=== PATIENT | female | born 1935 | race Caucasian/White ===

== ENCOUNTER 2016-11-05 06:47 | Day surgery (SDC) | payer OTHER, BC ==
[2016-11-01 13:11] VITALS: BMI 29.5
--- NOTE | 2016-11-05 06:23 | HP ---
History & Physical Update - History History: No Change - Physical Physical: No Change - Assessment Assessment: No Change - Plan Plan: No Change
[~2016-11-05 06:47] MED LIST: CHONDROITIN SU A/HYALUR SOD 1 KIT IO ONE; TOBRAMYCIN/DEXAMETHASONE OPHTH. OINTMENT 1 TUBE TP ONE
[2016-11-05] MEDS ORDERED: EPINEPHrine/PF 1 MG/1 ML (1:1,000) AMPULE ONE (07:17)
[2016-11-05] MEDS ORDERED: LIDOCAINE HCL/PF 2% SDV 5ML VIAL ONE (07:17)
[2016-11-05] MEDS ORDERED: BUPIVACAINE HCL/PF 0.75% 10 ML VIAL ONE (07:17)
[2016-11-05 07:18] VITALS: TEMP 97.5
[2016-11-05] MEDS ORDERED: ACETYLCHOLINE 1:100 INTRA-OCUL 20 MG/2 ML KIT ONE (07:18)
[2016-11-05] MEDS ORDERED: TETRACAINE 0.5% OPHTH SOLN 2 ML BOTTLE ONE (07:18)
[2016-11-05] MEDS ORDERED: POVIDONE-IODINE 5% OPHTHALMIC PREP 30 ML SOLUTION ONE (07:18)
[2016-11-05] MEDS ORDERED: BSS (NA/CA/MG/K) BALANCED SALT SOLUTION OPHTH SOLN 15 ML BOTTLE ONE (07:18)
[2016-11-05] MEDS ORDERED: TRYPAN BLUE 0.5 ML DISP.SYRIN ONE (07:18)
[2016-11-05] MEDS: PHENYLEPHRINE 2.5% OPHTH SOLN 15 ML BOTTLE OP SCH ×2 (07:20→07:25)
[2016-11-05] MEDS: TROPICAMIDE 1% OPHTH SOLN 15 ML BOTTLE OP SCH ×2 (07:20→07:25)
[2016-11-05] MEDS ORDERED: TOBRAMYCIN/DEXAMETHASONE OPHTH. OINTMENT 1 TUBE ONE (07:20)
[2016-11-05] MEDS: CYCLOPENTOLATE HCL 1% OPHTH SOLN 2 ML BOTTLE OP SCH ×2 (07:20→07:25)
[2016-11-05] MEDS: MOXIFLOXACIN HCL 0.5% OPHTHALMIC 3 ML BOTTLE OP SCH ×2 (07:20→07:25)
[2016-11-05] MEDS ORDERED: MIDAZOLAM HCL 2 MG/2 ML SINGLE DOSE VIAL ONE (08:07)
[2016-11-05] MEDS ORDERED: TETRACAINE 0.5% HCL 0.6ML DROPPER.BOTTLE TP ONE (08:07)
[2016-11-05] MEDS ORDERED: PROPOFOL 20 ML ONE (08:08)
[2016-11-05] MEDS ORDERED: BUPIVACAINE HCL/PF 0.75% 10 ML VIAL RB ONE (08:14)
[2016-11-05] MEDS ORDERED: LIDOCAINE HCL/PF 2% SDV 5ML VIAL PNB ONE (08:14)
[2016-11-05] MEDS ORDERED: CHONDROITIN/NA HYALURONATE 0.5 ML DISP.SYRIN IO ONE (08:19)
[2016-11-05] MEDS ORDERED: TRYPAN BLUE 0.5 ML DISP.SYRIN IO ONE (08:20)
[2016-11-05] MEDS ORDERED: METOPROLOL TARTRATE 5 MG/5 ML VIAL ONE (08:20)
[2016-11-05] MEDS ORDERED: CHONDROITIN SU A/HYALUR SOD 1 KIT IO ONE (08:45)
[2016-11-05] MEDS ORDERED: TOBRAMYCIN/DEXAMETHASONE OPHTH. OINTMENT 1 TUBE TP ONE (08:54)
[2016-11-05 14:20] VITALS: BP 154/70; PULSE 93
--- NOTE | 2016-11-05 14:40 | OP ---
DATE OF OPERATION: 11/05/2016 BRIEF HISTORY: The patient is an 81-year-old woman with a past medical history of diabetes, who presents with decreased vision in the right eye down to 20/100 due to a 3+ nuclear sclerotic lens with dense cortical spoking. After the risks, benefits, and alternatives to cataract surgery were discussed with the patient, she consented to surgery for the right eye. DESCRIPTION OF PROCEDURE: The patient was brought to the operating room and administered retrobulbar block after receiving intravenous sedation. She was then prepped and draped in the usual sterile fashion, and an eyelid speculum was inserted in the right eye. A paracentesis was made, and the anterior chamber was inflated with air, trypan blue dye, and Viscoat. A groove was made in the temporal clear cornea which was tunneled forward with a crescent blade. The anterior chamber was entered with a 2.75 keratome. The cystotome was used to make an incision in the center of the capsule, and a continuous curvilinear capsulorrhexis was created. The lens was hydrodissected until it was found to rotate freely within the capsular bag. Phacoemulsification was used to remove the lens in its entirety. Irrigation and aspiration were used to remove residual cortical material. The anterior chamber and capsular bag were reinflated with Provisc, and a 24.0-diopter SN60WF AcrySof intraocular lens was injected into the capsular bag using the [place] injector. The lens was dialed into place using a [place] hook. Irrigation and aspiration were used to remove residual Viscoelastic. The wound was stromally hydrated; however, the wound was not found to be watertight. Two 10-0 nylon sutures were placed at the wound, and the wound was found to be watertight. The eye was at an appropriate pressure. The eyelid speculum was removed from the eye, and TobraDex ointment and a patch and shield were placed over the right eye. The patient was transferred to the recovery room in stable condition and will follow up tomorrow. Adan [id number] MTDD
== END 2016-11-05 10:50 | disposition home or self-care (01) ==
LOC: JASU-SURG 06:47
PROVIDERS: ATTEND Ophthalmology
PROC: 08RJ3JZ Replacement of Right Lens with Synthetic Substitute, Percutaneous Approach (ICD-10-PCS; principal; 2016-11-05 08:00)
DX: H25.11 Age-related nuclear cataract, right eye (principal)

== ENCOUNTER 2017-03-11 06:40 | Day surgery (SDC) | payer OTHER, BC ==
--- NOTE | 2017-03-11 06:13 | HP ---
History & Physical Update - History History: No Change - Physical Physical: No Change - Assessment Assessment: No Change - Plan Plan: No Change
[~2017-03-11 06:40] MED LIST changes: +BUPIVACAINE HCL/PF 0.75% 10 ML VIAL RB ONE; -CHONDROITIN SU A/HYALUR SOD 1 KIT IO ONE; +LIDOCAINE HCL/PF 2% SDV 5ML VIAL PNB ONE; +TETRACAINE 0.5% OPHTH SOLN 2 ML BOTTLE TP ONE; +TROPICAMIDE 1% OPHTH SOLN 15 ML BOTTLE OP SCH
[2017-03-11] MEDS: PHENYLEPHRINE 2.5% OPHTH SOLN 15 ML BOTTLE OP SCH ×3 (07:00→07:10)
[2017-03-11] MEDS: CYCLOPENTOLATE HCL 1% OPHTH SOLN 2 ML BOTTLE OP SCH ×3 (07:00→07:10)
[2017-03-11] MEDS ORDERED: TROPICAMIDE 1% OPHTH SOLN 15 ML BOTTLE OS ONE ×3 (07:00→07:10)
[2017-03-11] MEDS: MOXIFLOXACIN HCL 0.5% OPHTHALMIC 3 ML BOTTLE OP SCH ×3 (07:00→07:10)
[2017-03-11] MEDS ORDERED: MOXIFLOXACIN HCL 0.5% OPHTHALMIC 3 ML BOTTLE ONE (07:11)
[2017-03-11] MEDS ORDERED: CYCLOPENTOLATE HCL 1% OPHTH SOLN 2 ML BOTTLE ONE (07:11)
[2017-03-11] MEDS ORDERED: TROPICAMIDE 1% OPHTH SOLN 15 ML BOTTLE ONE (07:11)
[2017-03-11] MEDS ORDERED: PHENYLEPHRINE 2.5% OPHTH SOLN 15 ML BOTTLE ONE (07:11)
[2017-03-11] MEDS ORDERED: SUCCINYLCHOLINE CHLORIDE 200 MG/10 ML VIAL ONE (07:19)
[2017-03-11] MEDS ORDERED: ePHEDrine SULFATE 50 MG/1 ML AMPULE ONE (07:19)
[2017-03-11] MEDS ORDERED: PROPOFOL 20 ML ONE ×2 (07:19)
[2017-03-11] MEDS ORDERED: TOBRAMYCIN/DEXAMETHASONE OPHTH. OINTMENT 1 TUBE ONE (07:24)
[2017-03-11] MEDS ORDERED: LIDOCAINE 1% P/F 10 MG/ML VIAL ONE (07:25)
[2017-03-11] MEDS ORDERED: LIDOCAINE HCL/PF 2% SDV 5ML VIAL ONE (07:25)
[2017-03-11] MEDS ORDERED: ACETYLCHOLINE 1:100 INTRA-OCUL 20 MG/2 ML KIT ONE (07:25)
[2017-03-11] MEDS ORDERED: TRYPAN BLUE 0.5 ML DISP.SYRIN ONE (07:25)
[2017-03-11] MEDS ORDERED: BUPIVACAINE HCL/PF 0.75% 10 ML VIAL ONE (07:25)
[2017-03-11] MEDS ORDERED: EPINEPHrine/PF 1 MG/1 ML (1:1,000) AMPULE ONE (07:25)
[2017-03-11] MEDS ORDERED: POVIDONE-IODINE 5% OPHTHALMIC PREP 30 ML SOLUTION ONE (07:26)
[2017-03-11] MEDS ORDERED: LIDOCAINE HCL/PF 1% SDV 5ML VIAL ONE (07:28)
[2017-03-11] MEDS ORDERED: TETRACAINE 0.5% OPHTH SOLN 2 ML BOTTLE ONE (07:48)
[2017-03-11] MEDS ORDERED: TETRACAINE 0.5% OPHTH SOLN 2 ML BOTTLE TP ONE (08:00)
[2017-03-11] MEDS ORDERED: BUPIVACAINE HCL/PF 0.75% 10 ML VIAL RB ONE (08:07)
[2017-03-11] MEDS ORDERED: LIDOCAINE HCL/PF 2% SDV 5ML VIAL PNB ONE (08:07)
[2017-03-11] MEDS ORDERED: LIDOCAINE HCL 1% PRESERVATIVE FREE - 30ML VIAL IO ONE (08:16)
[2017-03-11] MEDS ORDERED: CHONDROITIN SU A/HYALUR SOD 1 KIT IO ONE (08:17)
[2017-03-11] MEDS ORDERED: TOBRAMYCIN/DEXAMETHASONE OPHTH. OINTMENT 1 TUBE TP ONE (08:39)
[2017-03-11] MEDS ORDERED: ONDANSETRON 4 MG/2 ML VIAL IVPUSH PRN (09:20)
[2017-03-11] MEDS ORDERED: ACETAMINOPHEN 325 MG TABLET (FP) PO PRN (09:20)
[2017-03-11] MEDS ORDERED: LACTATED RINGERS SOLUTION 1,000 ML IV SCH (09:30)
[2017-03-11 09:38] VITALS: BP 160/78; PULSE 80; TEMP 97.8
--- NOTE | 2017-03-12 08:42 | OP ---
DATE OF OPERATION: 03/11/2017 SURGEON: James Escalante MD PREOPERATIVE DIAGNOSIS: Cataract, left eye. OPERATION: Phacoemulsification and intraocular lens implantation, left eye. POSTOPERATIVE DIAGNOSIS: Cataract, left eye. ANESTHESIA: Local with intravenous sedation. COMPLICATIONS: None. BLOOD LOSS: None. SPECIMEN: None. BRIEF HISTORY: The patient is an 81-year-old woman with a past medical history of diabetes who presented with decreased vision in the left eye down to 20/100 due to a 3+ nuclear sclerotic lens and cortical spoking. After the risks, benefits, and alternatives to cataract surgery were discussed with the patient, she consented to surgery for the left eye. DESCRIPTION OF PROCEDURE: The patient was brought to the operating room and administered retrobulbar block after receiving intravenous sedation. She was then prepped and draped in the usual sterile fashion, and an eyelid speculum was inserted in the left eye, a paracentesis was made, and the anterior chamber was inflated with nonpreserved lidocaine. This was followed by injection of Viscoat. A groove was made in the superotemporal clear cornea which was tunneled forward with a crescent blade. The anterior chamber was entered with a 2.75 keratome. The cystotome was used to make an incision at the center of the capsule, and a continuous curvilinear capsulorrhexis was created. The lens was hydrodissected until it was found to rotate freely within the capsular bag. Phacoemulsification was then used to remove the lens in its entirety. Irrigation and aspiration were used to remove residual cortical material. The anterior chamber and capsular bag were reinflated with Provisc, and a 23.0 diopter SN60WF AcrySof intraocular lens was injected into the capsular bag using the [place] injector. The lens was dialed into place using the [place] hook. Irrigation and aspiration were used to remove residual viscoelastic. The wound was stromally hydrated until it was found to be watertight and the eye was in an appropriate pressure. The eyelid speculum was removed from the eye, and TobraDex ointment and a patch and shield were placed over the left eye. The patient was transferred to the recovery room in stable condition and will follow up tomorrow. Adan [id number] MTDD
== END 2017-03-11 09:55 | disposition home or self-care (01) ==
LOC: JASU-SURG 06:40
PROVIDERS: ATTEND Ophthalmology
PROC: 08RK3JZ Replacement of Left Lens with Synthetic Substitute, Percutaneous Approach (ICD-10-PCS; principal; 2017-03-11 08:00)
DX: H25.12 Age-related nuclear cataract, left eye (principal); E11.9 Type 2 diabetes mellitus without complications

== ENCOUNTER 2017-06-26 12:53 | Emergency (ER) | payer OTHER, BC ==
[2017-06-26 12:58] VITALS: BP 147/58; PULSE 69; TEMP 98.4; BMI 29.3
[2017-06-26] MEDS ORDERED: SODIUM CHLORIDE 1,000 ML IV ONE (13:02)
--- NOTE | 2017-06-26 13:02 | PDOC ---
History of Present Illness - History of Present Illness Initial Comments: 06/26/17 16:28 Ms. Hoyos is an 81 year old female with a significant past medical history of DM, HTN, Hypercholesterolemia and quintuple heart bypass who presents to the emergency department for evaluation on direction from PCP after she has experienced 1 1/2 weeks of no bowel movements and decreased appetite. She states that she had a bowel movement last night as well as this morning, however , and that she ate for the first time over that time period last night. She also endorses abdominal pain and says that she has been passing a lot of gas recently. The patient denies chest pain, shortness of breath, headache and dizziness. Denies fever, chills, nausea, vomit, diarrhea and constipation. Denies dysuria, frequency, urgency and hematuria. Allergies: NKDA Past surgical history: Bypass in Social history: Approximate 50 pack year smoking history <Ramón Leigh - Last Filed: 06/26/17 19:09> <Kelechi Babin - Last Filed: 06/26/17 19:48> - General Chief Complaint: Pain Stated Complaint: PCP SENT Time Seen by Provider: 06/26/17 13:02 Past History - Past Medical History Anemia: No Asthma: No Cancer: No Cardiac Disorders: Yes (BYPASS X 5 1998) CVA: No COPD: No CHF: Yes Dementia: No Diabetes: Yes GI Disorders: No Disorders: No HTN: Yes (low blood pressure when she stands) Hypercholesterolemia: Yes Liver Disease: No Seizures: No Thyroid Disease: No - Surgical History Abdominal Surgery: Yes (hysterectomy) Appendectomy: No Cardiac Surgery: Yes (1998 cabg) Cholecystectomy: Yes Lung Surgery: No Neurologic Surgery: No Orthopedic Surgery: No - Psycho/Social/Smoking Cessation Hx Anxiety: No Suicidal Ideation: No Smoking Status: No Smoking History: Former smoker Have you smoked in the past 12 months: No Number of Cigarettes Smoked Daily: 0 If you are a former smoker, when did you quit?: 1997 Information on smoking cessation initiated: No Hx Alcohol Use: No Drug/Substance Use Hx: No Substance Use Type: None Hx Substance Use Treatment: No <Ramón Leigh - Last Filed: 06/26/17 19:09> <Kelechi Babin - Last Filed: 06/26/17 19:48> - Past Medical History Allergies/Adverse Reactions: Allergies Allergy/AdvReac Type Severity Reaction Status Date / Time No Known Allergies Allergy Verified 06/26/17 12:54 Home Medications: Ambulatory Orders Ascorbate Calcium [Vitamin C] 1,000 mg PO BID 12/11/15 Aspirin [ASA -] 81 mg PO DAILY 12/11/15 Allopurinol [Zyloprim -] 300 mg PO DAILY #30 tablet 12/15/15 Ferrous Gluconate [Iron] 130 mg PO BID 11/01/16 Furosemide [Lasix] 40 mg PO DAILY 11/01/16 Ibandronate Sodium 3 mg IV ASDIR 11/01/16 Metoprolol Succinate [Toprol Xl] 50 mg PO HS 11/01/16 Pioglitazone HCl [Actos] 22.5 mg PO DAILY 11/01/16 Pravastatin Sodium [Pravachol -] 40 mg PO HS 11/01/16 Nitrofurantoin Monohyd/M-Cryst [Macrobid -] 100 mg PO BID #14 capsule 06/26/17 Review of Systems - Review of Systems Comments:: 06/26/17 16:34 GENERAL/CONSTITUTIONAL: No fever or chills. No weakness. HEAD, EYES, EARS, NOSE AND THROAT: No change in vision. No ear pain or discharge. No sore throat. CARDIOVASCULAR: No chest pain or shortness of breath RESPIRATORY: No cough, wheezing, or hemoptysis. GASTROINTESTINAL: +Diffuse abdominal pain with constipation. No nauseah, vomiting, or diarrhea. GENITOURINARY: No dysuria, frequency, or change in urination. MUSCULOSKELETAL: No joint or muscle swelling or pain. No neck or back pain. SKIN: No rash NEUROLOGIC: No headache, vertigo, loss of consciousness, or change in strength/ sensation. ENDOCRINE: No increased thirst. No abnormal weight change HEMATOLOGIC/LYMPHATIC: No anemia, easy bleeding, or history of blood clots. ALLERGIC/IMMUNOLOGIC: No hives or skin allergy. <Ramón Leigh - Last Filed: 06/26/17 19:09> *Physical Exam - Vital Signs Last Vital Signs Temp Pulse Resp BP Pulse Ox 98.4 F 69 19 147/58 95 06/26/17 12:54 06/26/17 12:54 06/26/17 12:54 06/26/17 12:54 06/26/17 12:54 - Physical Exam Comments: 06/26/17 16:34 GENERAL: Awake, alert, and fully oriented, in no acute distress HEAD: No signs of trauma, normocephalic, atraumatic EYES: PERRLA, EOMI, sclera anicteric, conjunctiva clear ENT: Auricles normal inspection, hearing grossly normal, nares patent, oropharynx clear without exudates. Moist mucosa NECK: Normal ROM, supple, no lymphadenopathy, JVD, or masses LUNGS: No distress, speaks full sentences, clear to auscultation bilaterally HEART: Regular rate and rhythm, normal S1 and S2, no murmurs, rubs or gallops, peripheral pulses normal and equal bilaterally. ABDOMEN: +Tender to palpation bilaterally in lower abdomen. Also appears distended. Hypoactive bowel sounds. No guarding, no rebound. No masses EXTREMITIES: Normal inspection, Normal range of motion, no edema. No clubbing or cyanosis. NEUROLOGICAL: Cranial nerves II through XII grossly intact. Normal speech, normal gait, no focal sensorimotor deficits SKIN: Warm, Dry, normal turgor, no rashes or lesions noted. <Ramón Leigh - Last Filed: 06/26/17 19:09> - Vital Signs Last Vital Signs Temp Pulse Resp BP Pulse Ox 98.4 F 69 19 147/58 95 06/26/17 12:54 06/26/17 12:54 06/26/17 12:54 06/26/17 12:54 06/26/17 12:54 <Kelechi Babin - Last Filed: 06/26/17 19:48> ED Treatment Course - LABORATORY CBC & Chemistry Diagram: 06/26/17 13:30 06/26/17 13:30 <Ramón Leigh - Last Filed: 06/26/17 19:09> - LABORATORY CBC & Chemistry Diagram: 06/26/17 13:30 06/26/17 13:30 - ADDITIONAL ORDERS Additional order review: Laboratory Results 06/26/17 06/26/17 06/26/17 13:30 13:30 13:30 INR Sodium 140 Potassium 4.3 Chloride 101 Carbon Dioxide 30 Anion Gap 9 BUN 42 H D Creatinine 1.9 H D Creat Clearance w eGFR 25.37 Random Glucose 129 H D Lactic Acid 1.0 Calcium 9.3 Total Bilirubin 0.6 D AST 20 D ALT 15 Alkaline Phosphatase 114 Total Protein 6.9 Albumin 3.7 Lipase 249 Urine Color Urine Appearance Urine pH Urine Protein Urine Glucose (UA) Urine Ketones Urine Blood Urine Nitrite Urine Bilirubin Urine Urobilinogen Ur Leukocyte Esterase Urine RBC Urine WBC Ur Epithelial Cells Urine Bacteria Hyaline Casts Urine Mucus Blood Type O NEGATIVE Antibody Screen Negative 06/26/17 06/26/17 13:30 13:30 INR 0.97 Sodium Potassium Chloride Carbon Dioxide Anion Gap BUN Creatinine Creat Clearance w eGFR Random Glucose Lactic Acid Calcium Total Bilirubin AST ALT Alkaline Phosphatase Total Protein Albumin Lipase Urine Color Ltyellow Urine Appearance Slcloudy Urine pH 6.0 Urine Protein Negative Urine Glucose (UA) Negative Urine Ketones Negative Urine Blood Negative Urine Nitrite Positive Urine Bilirubin Negative Urine Urobilinogen Negative Ur Leukocyte Esterase 2+ H Urine RBC 1 Urine WBC 71 Ur Epithelial Cells Rare Urine Bacteria Few Hyaline Casts 1 Urine Mucus Rare Blood Type Antibody Screen 06/26/17 13:30 RBC 4.16 MCV 95.7 MCHC 33.4 RDW 15.3 MPV 11.2 H Neutrophils % 74.4 Lymphocytes % 14.3 Monocytes % 8.8 Eosinophils % 2.0 Basophils % 0.5 - RADIOLOGY Radiology Studies Ordered: Category Date Time Status ABDOMEN & PELVIS CT W/O CONTR [CT] Stat CT Scan 06/26/17 15:46 Completed <Kelechi Babin - Last Filed: 06/26/17 19:48> Medical Decision Making - Medical Decision Making 06/26/17 19:[address] negative for pathology, primary contacted regarding admit vs. follow- up in clinic. Patient signed out to Dr. Renae for further care. 06/26/17 19:10 <Ramón Leigh - Last Filed: 06/26/17 19:09> *DC/Admit/Observation/Transfer <Ramón Leigh - Last Filed: 06/26/17 19:09> <Kelechi Babin - Last Filed: 06/26/17 19:48> Diagnosis at time of Disposition: Renal insufficiency UTI (urinary tract infection) Qualifiers: Urinary tract infection type: acute cystitis Hematuria presence: without hematuria Qualified Code(s): N30.00 - Acute cystitis without hematuria Constipation Qualifiers: Constipation type: other constipation type Qualified Code(s): K59.09 - Other constipation - Discharge Dispostion Disposition: HOME Condition at time of disposition: Improved - Prescriptions Prescriptions: Nitrofurantoin Monohyd/M-Cryst [Macrobid -] 100 mg PO BID #14 capsule - Referrals Referrals: Bryce Ash MD [Primary Care Provider] - Yonny Her MD [Staff Physician] - - Patient Instructions Printed Discharge Instructions: DI for Constipation, DI for Urinary Tract Infection (UTI) Additional Instructions: Activity as tolerated. Stay VERY WELL hydrated. Blood tests, a urine test, and a CT abdomen and pelvis showed evidence of a urine infection and constipation. The kidneys are also slightly dehydrated, so you were given some fluids. Take Macrobid as prescribed as antibiotic for the urine infection. Take over the counter Miralax or Magnesium Citrate to relieve the constipation. Drink plenty of fluids and follow up with Dr. Ash and Arden to recheck your kidney tests. Continue your medications as previously prescribed by your physicians. Follow up with Dr. Ash and Dr. Her as soon as possible regarding today' s emergency department visit. Return to the emergency department for any new or concerning symptoms, including increasing weakness, difficulty urinating, persistent or worsening abdominal pain or vomiting, fever/chills.
--- NOTE | 2017-06-26 14:17 | PDOC ---
Attending Attestation - Resident Resident Name: Ramón Leigh - ED Attending Attestation I have performed the following: I have examined & evaluated the patient, The case was reviewed & discussed with the resident, I agree w/resident's findings & plan, Exceptions are as noted - HPI HPI: 06/26/17 14:14 81y/o F h/o hysterectomy and cholecystecomy, severe cardiac disease with history of CABG sent from Dr. Lr's office for further evaluation of abdominal pain and constipation. Patient with 2 weeks of constipation with abdominal bloating, decreased appetite, and vomiting. Had bowel movement this morning that was nonbloody, presents with persistent pain. - Physicial Exam PE: 06/26/17 14:15 afebrile, vital signs normal. Generally well-appearing. Abdomen is soft but distended. Tender with guarding in the lower abdomen, reducible umbilical hernia. Bowel sounds normal to decreased. - Medical Decision Making 06/26/17 14:16 Patient seen and evaluated with the resident. I agree with the overall evaluation, assessment, and management with the following summary of visit: 81-year-old female with history of abdominal surgeries presents with 2 weeks of constipation and abdominal bloating, concerning for obstruction versus infection (diverticulitis/colitis), rule out ischemia her cardiovascular history , question constipation primarily. Labs, urinalysis IV fluids, pain control CAT scan of the abdomen and pelvis Reassess and dispo accordingly 06/26/17 18:43 cbc wnl, no leukocytosis. Chem notable for Cr 1.9. Has had RI in the past to 1.7, but baseline around 1.2. UA pending CTAP without acute process/obstruction/infection. Will check UA. Pt wants to be discharged. possible UTI, will treat according to UA. Likely constipation, will give mg citrate. Given patient requesting discharge, will coordinate f/u of her Cr with her PMD. Understands strict return criteria. 06/26/17 19:[address] Ayala, covering Dr. Garrido. Pt's last Cr 1.4, so less increased than previously discussed. UA shows UTI with elevated wbc, explaining the lower abd pain. Discussed with patient/family and Dr. Ayala: plan is to d/c on abx with prompt PCP f/u to trend Cr, which is near baseline. Adequate hydration with strict return criteria, bowel regimen for constipation. All in agreement, will f/u accordingly. First dose of abx given here.
[2017-06-26 14:51] LABS: BASOPHIL 0.5 % (0-2.0); MCH 31.9 pg (25.7-33.7); MCHC 33.4 g/dl (32.0-36.0); MEAN CELL VOLUME 95.7 fl (80-96); MEAN PLT VOLUME 11.2 fl (7.5-11.1); NEUTROPHILS 74.4 % (42.8-82.8); PLATELET COUNT 135 K/MM3 (134-434); RDW 15.3 % (11.6-15.6); WHITE BLOOD COUNT 6.7 K/mm3 (4.0-10.0)
[2017-06-26 15:01] LABS: INR 0.97 (0.82-1.09); PROTHROMBIN TIME (PATIENT) 10.7 SEC (9.98-11.88)
[2017-06-26 15:05] LABS: ALBUMIN 3.7 g/dl (3.4-5.0); ANION GAP 9 (8-16); CALCIUM 9.3 mg/dL (8.5-10.1); CO2 30 mmol/L (21-32); CREATININE 1.9 mg/dL (0.55-1.02); GLUCOSE,RANDOM 129 mg/dL (74-106); SGOT/AST 20 U/L (15-37); SGPT/ALT 15 U/L (12-78)
[2017-06-26 15:06] LABS: ALK PHOS 114 U/L (45-117); BILIRUBIN,TOTAL 0.6 mg/dL (0.2-1.0); TOT PROT 6.9 g/dl (6.4-8.2)
[2017-06-26 19:09] LABS: URINE APPEARANCE SLCLOUDY; URINE BILIRUBIN NEGATIVE (NEGATIVE); URINE BLOOD NEGATIVE (NEGATIVE); URINE COLOR LTYELLOW; URINE GLUCOSE (UA) NEGATIVE (NEGATIVE); URINE KETONE NEGATIVE (NEGATIVE); URINE NITRITE POSITIVE (NEGATIVE); URINE PROTEIN NEGATIVE (NEGATIVE); URINE UROBILINOGEN NEGATIVE mg/dL (0.2-1.0)
[2017-06-26 19:16] LABS: URINE LEUK ESTERASE 2+ (NEGATIVE)
[2017-06-26 19:17] LABS: URINE BACTERIA FEW /hpf (NONE SEEN); URINE HYALINE CAST 1 /lpf; URINE MUCUS RARE; URINE RBC 1 /hpf (0-3); URINE WBC 71 /hpf (3-5)
[2017-06-26] MEDS ORDERED: NITROFURANTOIN MACROCRYSTAL 50 MG CAPSULE (FP) PO SCH (19:45)
[2017-06-26] MEDS ORDERED: NITROFURANTOIN MACROCRYSTAL 50 MG CAPSULE (FP) ONE (21:05)
== END 2017-06-26 21:14 | disposition home or self-care (01) ==
LOC: JER 12:53
DX: K59.00 Constipation, unspecified (principal); N30.00 Acute cystitis without hematuria; B96.89 Other specified bacterial agents as the cause of diseases classified elsewhere; N28.9 Disorder of kidney and ureter, unspecified; I25.810 Atherosclerosis of coronary artery bypass graft(s) without angina pectoris; I11.0 Hypertensive heart disease with heart failure; Z95.1 Presence of aortocoronary bypass graft; Z87.891 Personal history of nicotine dependence; E11.9 Type 2 diabetes mellitus without complications; E78.00 Pure hypercholesterolemia, unspecified
CPT/HCPCS: 36415; 74176-TC; 80053; 81003; 81015; 83605; 83690; 85025; 85610; 86850; 86900; 86901; 87086; 87186; 99281-25

== ENCOUNTER 2018-11-08 18:39 | Inpatient (IN) | payer OTHER, BC ==
--- NOTE | 2018-11-08 19:44 | PDOC ---
History of Present Illness - General Chief Complaint: Injury Stated Complaint: FALL Time Seen by Provider: 11/08/18 19:31 History Source: Patient Exam Limitations: No Limitations - History of Present Illness Initial Comments: Pt is a 83 yo F, with PMH of DM, HTN, HLD, CAD (s/p quintuple bypass), who is presenting after a fall to the R hip. Pt states she was walking to the bathroom , when her "legs gave out" and she fell onto her R side. Pt was unable to get up , and an ambulance was called. Pt normally uses a walker to get around her house , but was not using it today. She has a few steps to get in and out of her house , but no stairs within her house. Pt also complaining of "feeling weak", decreased PO food and fluid intake, dysuria, dry cough, and sleeping more frequently x1 month. Pt uses home O2 (2L) and 3 pillow orthopnea at night. Pt denies any fevers/chills, headache, vision changes, syncope, chest pain, palpitations, SOB, nausea/vomiting, abdominal pain, urinary frequency/urgency/ hematuria, diarrhea/constipation, or leg swelling. Social: Pt denies any cigarette, alcohol, or drug use. Pt denies any recent travel or sick contacts. Surgical: cardiac bypass, hysterectomy, cholecystectomy. Family: no relevant history. 11/08/18 21:26 Past History - Travel Traveled outside of the country in the last 30 days: No Close contact w/someone who was outside of country & ill: No - Past Medical History Allergies/Adverse Reactions: Allergies Allergy/AdvReac Type Severity Reaction Status Date / Time No Known Allergies Allergy Verified 11/08/18 18:59 Home Medications: Ambulatory Orders Ascorbate Calcium [Vitamin C] 1,000 mg PO BID 12/11/15 Aspirin [ASA -] 81 mg PO DAILY 12/11/15 Allopurinol [Zyloprim -] 300 mg PO DAILY #30 tablet 12/15/15 Ferrous Gluconate [Iron] 130 mg PO BID 11/01/16 Furosemide [Lasix] 40 mg PO DAILY 11/01/16 Ibandronate Sodium 3 mg IV ASDIR 11/01/16 Metoprolol Succinate [Toprol Xl] 50 mg PO HS 11/01/16 Pioglitazone HCl [Actos] 22.5 mg PO DAILY 11/01/16 Pravastatin Sodium [Pravachol -] 40 mg PO HS 11/01/16 Nitrofurantoin Monohyd/M-Cryst [Macrobid -] 100 mg PO BID #14 capsule 06/26/17 Anemia: No Asthma: No Cancer: No Cardiac Disorders: Yes (BYPASS X 5 1998) CVA: No COPD: No CHF: Yes Dementia: No Diabetes: Yes GI Disorders: No Disorders: No HTN: Yes (low blood pressure when she stands) Hypercholesterolemia: Yes Liver Disease: No Seizures: No Thyroid Disease: No - Surgical History Abdominal Surgery: Yes (hysterectomy) Appendectomy: No Cardiac Surgery: Yes (1998 cabg) Cholecystectomy: Yes Lung Surgery: No Neurologic Surgery: No Orthopedic Surgery: No - Suicide/Smoking/Psychosocial Hx Smoking Status: No Smoking History: Never smoked Have you smoked in the past 12 months: No Number of Cigarettes Smoked Daily: 0 If you are a former smoker, when did you quit?: 1997 Information on smoking cessation initiated: No Hx Alcohol Use: No Drug/Substance Use Hx: No Substance Use Type: None Hx Substance Use Treatment: No Review of Systems - Review of Systems Able to Perform ROS?: Yes Is the patient limited Ethiopian proficient: No Constitutional: Yes: Loss of Appetite, Malaise, Weakness, Weight Stable. No: Chills, Diaphoresis, Fever HEENTM: No: Blurred Vision, Recent change in vision, Nose Congestion, Throat Pain, Difficulty Swallowing Respiratory: Yes: Orthopnea, Shortness of Breath (home O2 2L NC), SOB with Exertion, SOB at Rest. No: Cough, Wheezing, Productive cough Cardiac (ROS): No: Chest Pain, Edema, Irregular Heart Rate, Lightheadedness, Palpitations, Syncope, Chest Tightness ABD/GI: Yes: Poor Appetite, Poor Fluid Intake. No: Abdominal Distended, Constipated, Diarrhea, Nausea, Rectal Bleeding, Vomiting, Indigestion, Abdominal cramping : Yes: Burning, Dysuria. No: Discharge, Frequency, Flank Pain, Hematuria, Incontinence, Pain, Urgency Musculoskeletal: Yes: See HPI, Joint Pain (R hip pain since fall), Muscle Weakness. No: Back Pain, Joint Swelling, Muscle Pain Integumentary: No: Bruising, Rash Neurological: Yes: Weakness, Unsteady Gait. No: Headache, Numbness, Paresthesia , Tremors, Ataxia, Dizziness Psychiatric: Yes: Sleep Pattern Change, Change in Appetite Endocrine: No: Increased Urine, Change in Weight Hematologic/Lymphatic: No: Anemia, Blood Clots, Easy Bleeding, Easy Bruising All Other Systems: Reviewed and Negative *Physical Exam - Vital Signs Last Vital Signs Temp Pulse Resp BP Pulse Ox 98.5 F 84 20 166/84 95 11/08/18 18:55 11/08/18 18:55 11/08/18 18:55 11/08/18 18:55 11/08/18 18:55 - Physical Exam Comments: Pt HTN (166/84), pt afebrile. PE showed pt alert and oriented. mechanical ordnance assembler generally intact, sensation intact, generalized muscle weakness in extremities. Localized tenderness to palpation over R anterior hip, unable to straight-leg test on the R. Good DP pulses. R leg NOT externally rotated or shortened. No obvious ecchymosis. Dry oral mucosa. Clear heart and lung sounds, no JVD, b/l pedal edema, or heart murmur. Diffuse lower abdominal tenderness to palpation, no rebound, no guarding. No CVA tenderness. 11/08/18 21:23 General Appearance: Yes: Nourished, Appropriately Dressed. No: Apparent Distress HEENT: positive: EOMI, SHELBIE, Normal ENT Inspection, Normal Voice, Pharynx Normal , Hearing Grossly Normal. negative: Scleral Icterus (R), Scleral Icterus (L), Pharyngeal Erythema, Tonsillar Exudate, Tonsillar Erythema, Nasal Congestion, Rhinorrhea, Sinus Tenderness Neck: positive: Trachea midline, Normal Thyroid, Supple. negative: Tender, Rigid, Decreased range of motion, Lymphadenopathy (R), Lymphadenopathy (L), Rigidity Respiratory/Chest: positive: Lungs Clear, Normal Breath Sounds. negative: Chest Tender, Respiratory Distress, Accessory Muscle Use, Crackles, Wheezing Cardiovascular: positive: Regular Rhythm, Regular Rate, S1, S2. negative: Edema , JVD, Murmur Vascular Pulses: Dorsalis-Pedis (R): 4+, Doralis-Pedis (L): 4+ Gastrointestinal/Abdominal: positive: Normal Bowel Sounds, Tender (diffuse lower abdominal tenderness, no rebound, no guarding), Soft, Protuberent. negative: Flat, Organomegaly, Pulsatile Mass, Distended, Guarding, Rebound Rectal Exam: positive: deferred Lymphatic: negative: Adenopathy, Tenderness Musculoskeletal: positive: Normal Inspection. negative: CVA Tenderness, Vertebral Tenderness Extremity: positive: Normal Capillary Refill, Pelvis Stable. negative: Normal Inspection, Normal Range of Motion, Tender (tender over R anterior hip, limited straight raise test), Pedal Edema, Swelling, Calf Tenderness Integumentary: positive: Normal Color, Dry, Warm. negative: Jaundice, Pale, Clammy, Diaphoresis, Rash, Bruising Neurologic: positive: mechanical ordnance assembler II-XII NML intact, Fully Oriented, Alert, Normal Mood/ Affect, Normal Response, Motor Strength 5/5. negative: EOM Palsy, Facial Droop , Numbness Moderate Sedation - Procedure Monitoring Vital Signs: Procedure Monitoring Vital Signs Temperature 98.5 F 11/08/18 18:55 Pulse Rate 84 11/08/18 18:55 Respiratory Rate 20 11/08/18 18:55 Blood Pressure 166/84 11/08/18 18:55 O2 Sat by Pulse Oximetry (%) 95 11/08/18 18:55 ED Treatment Course - LABORATORY CBC & Chemistry Diagram: 11/08/18 20:46 11/08/18 21:09 Medical Decision Making - Medical Decision Making Pt was seen at bedside, also will be seen by attending Dr. Yates. Pt presenting after a fall to the R hip. Pt states she was walking to the bathroom, when her "legs gave out" and she fell onto her R side. Pt was unable to get up, and an ambulance was called. Pt normally uses a walker to get around her house, but was not using it today. She has a few steps to get in and out of her house, but no stairs within her house. Pt also complaining of "feeling weak", decreased PO food and fluid intake, dysuria, dry cough, and sleeping more frequently x1 month. Pt uses home O2 (2L) and 3 pillow orthopnea at night. Pt denies any fevers/chills, headache, vision changes, syncope, chest pain, palpitations, SOB , nausea/vomiting, abdominal pain, urinary frequency/urgency/hematuria, diarrhea /constipation, or leg swelling. Pt HTN (166/84), pt afebrile. PE showed pt alert and oriented. mechanical ordnance assembler generally intact, sensation intact, generalized muscle weakness in extremities. Localized tenderness to palpation over R anterior hip, unable to straight-leg test on the R. Good DP pulses. R leg NOT externally rotated or shortened. No obvious ecchymosis. Dry oral mucosa. Clear heart and lung sounds, no JVD, b/l pedal edema, or heart murmur. Diffuse lower abdominal tenderness to palpation, no rebound, no guarding. No CVA tenderness. Considering mechanical fall with hip/femur fracture vs contusions; generalized weakness x1 month - ACS vs UTI vs dehydration/malnourished vs electrolyte abnormalities. Ordered work-up including CBC, CMP, Mg, Phos, trop, ECG, UA, urine culture, type & screen, PT/INR, chest x-ray, R hip/pelvis x-ray, CT head and C-spine, CT abd/pelvis with PO contrast. Provided 650 mg PO tylenol and banana bag for improvement of pain and dehydration/decreased PO intake. Will continue to reassess pt and monitor for symptomatic improvement. 11/08/18 20:57 CBC: WBC 15.7 UA: 2+ leuk esterase, micro pending. 11/08/18 21:27 UA: WBC 110 Coags WNL. CMP hemolyzed, was re-sent to lab and is pending. Starting 1 g IV ceftriaxone. 11/08/18 22:27 CMP: K 5.3 (slight hemolysis), BUN 37/Cr 1.7 (likely CARO) with UTI. Pt drinking oral contrast for CT abd/pelvis. 11/08/18 23:12 ECG: NSR, TWIs/T wave flattening I/aVL, V3-V6. Head CT: no acute pathology C-spine CT: degenerative changes with no acute fracture. X-ray R hip: no acute fracture, appears to have arthritic changes. Hospitalist team accepted admission (Dr. Yasmin Dsouza) for further work-up, possible rehabilitation for weakness/decreased po intake/hip pain. Pt lying comfortably, awaiting bed upstairs. 11/09/18 01:39 *DC/Admit/Observation/Transfer Diagnosis at time of Disposition: Acute kidney injury, Weakness UTI (urinary tract infection) Qualifiers: Urinary tract infection type: site unspecified Hematuria presence: without hematuria Qualified Code(s): N39.0 - Urinary tract infection, site not specified Fall Qualifiers: Encounter type: initial encounter Qualified Code(s): W19.XXXA - Unspecified fall, initial encounter - Discharge Dispostion Condition at time of disposition: Stable Decision to Admit order: Yes - Referrals - Patient Instructions - Post Discharge Activity
--- NOTE | 2018-11-08 20:08 | PDOC ---
Attending Attestation - HPI HPI: 11/08/18 22:35 83 year old female with past medical history of hypertension, hyperlipidemia, diabetes, CAD (s/p quintuple bypass) who presents to the ED today after s/p fall this afternoon. Patient was walking to the bathroom and states her legs gave out, causing her to fall and hit her right side. She also reports feeling overall weak the past few days with decreased oral intake and has become very tired. She reports diffuse pain. Denies any fever, chills, nausea, vomiting, diarrhea, cough, SOB, chest pain or urinary complaints. - Physicial Exam PE: 11/08/18 22:35 GENERAL: Awake, alert, and fully oriented, in no acute distress, warm to touch HEAD: No signs of trauma NECK: Normal ROM, supple, no lymphadenopathy, JVD, or masses LUNGS: Breath sounds equal, bilateral crackles in the bases likely due to atelectasis. HEART: Regular rate and rhythm, normal S1 and S2 ABDOMEN: Soft, obese, tender to palpation, normoactive bowel sounds. Arriaga catheter in place with urine bag showing cloudy urine. EXTREMITIES: Normal range of motion, no edema. No clubbing or cyanosis. No cords, erythema, or tenderness NEUROLOGICAL: Cranial nerves II through XII grossly intact. Normal speech SKIN: Warm, Dry, normal turgor, no rashes - Medical Decision Making 11/08/18 22:43 Documentation prepared by Carla La, acting as medical research associate for [place] Yates MD. <Carla La - Last Filed: 11/08/18 22:35> - Resident Resident Name: Gianna Duque - ED Attending Attestation I have performed the following: I have examined & evaluated the patient, The case was reviewed & discussed with the resident, I agree w/resident's findings & plan - Medical Decision Making 11/08/18 21:49 Pt is feeling weak and she has been sleeping all day. 11/08/18 23:10 Pt has diffuse abd pain. She will get a scan of her abd. She has UTI. However , unclear if she has any other infection brewing in her abd. Pt has elevated potassium. She will be treated with kayexalate. 11/08/18 23:18 Pt will be treated with a banana bag as well as with ceftriaxone 11/09/18 01:11 Patient Name: TIN DUNHAM THIS IS A PRELIMINARY REPORT FROM [facility] DATE OF SERVICE: 2018-11-09 00:28:07 IMAGES: [id number] EXAM: CT ABDOMEN \T\ PELVIS CT W/O CONTR HISTORY: Ileus or obstruction COMPARISON: None. FINDINGS: Abdomen Liver: ? Female Spleen: Normal Pancreas: Normal Gallbladder: Normal Stomach: Normal Small bowel: Normal Large bowel: Normal Appendix: Not seen Adrenals:Normal Kidneys: Normal Vascular: There are moderate atherosclerotic changes in the abdominal aorta Lymphatic: Normal Peritoneal: No free peritoneal air or fluid Pelvis: Uterus: Not seen Rectum: Normal Bladder: There is a Arriaga catheter The inferior thorax: Left ventricle is mildly enlarged General: Skeletal: Normal Abdominal wall: Normal IMPRESSION: No acute findings Patient Name: TIN DUNHAM THIS IS A PRELIMINARY REPORT FROM [facility] DATE OF SERVICE: 2018-11-09 00:21:33 IMAGES: 45 EXAM: CT CERVICAL SPINE CT W/O CONTR HISTORY: Fracture COMPARISON: None. FINDINGS: Vertebral bodies appear normal with no fracture Vertebral bodies are normally aligned There are mild degenerative changes with anterior osteophytes at the level CIV- C6 Airway is intact Soft Tissues are normal Pulmonary apices are normal IMPRESSION: Degenerative changes with no cervical spine fracture 11/09/18 01:12 Pt has UTI and weakness and inability to ambulate secondary to weakness. She will be admitted to med surg. 11/09/18 01:15 CXR cardiomegaly Hip XR: no fracture. <[place] Yates - Last Filed: 11/09/18 01:15>
[2018-11-08] MEDS ORDERED: SODIUM CHLORIDE 1,000 ML IV STA (20:19)
[2018-11-08] MEDS ORDERED: ACETAMINOPHEN 325 MG TABLET (FP) PO ONE (20:19)
[2018-11-08] MEDS ORDERED: SODIUM CHLORIDE 500 ML IV STA (20:20)
[2018-11-08 20:54] LABS: EOS % 0.1 % (0-4.5); HEMATOCRIT 38.3 % (32.4-45.2); HEMOGLOBIN 12.8 GM/dL (10.7-15.3); LYMPH % 3.3 % (8-40); MCH 31.1 pg (25.7-33.7); MCHC 33.6 g/dl (32.0-36.0); MEAN CELL VOLUME 92.6 fl (80-96); MEAN PLT VOLUME 9.9 fl (7.5-11.1); MONO % 8.2 % (3.8-10.2); NEUT % 88.4 % (42.8-82.8); PLATELET COUNT 192 K/MM3 (134-434); RBC 4.13 M/mm3 (3.60-5.2); RDW 12.8 % (11.6-15.6); WHITE BLOOD COUNT 15.7 K/mm3 (4.0-10.0)
[2018-11-08 21:00] LABS: URINE APPEARANCE CLOUDY; URINE BILIRUBIN NEGATIVE (<2.0 mg/dL); URINE COLOR YELLOW; URINE GLUCOSE (UA) NEGATIVE (NEGATIVE); URINE KETONE NEGATIVE (NEGATIVE); URINE LEUK ESTERASE 2+ (NEGATIVE); URINE NITRITE NEGATIVE (NEGATIVE); URINE PROTEIN 1+ (NEGATIVE); URINE UROBILINOGEN NEGATIVE mg/dL (0.2-1.0)
[2018-11-08 21:35] LABS: URINE BACTERIA RARE /hpf (NONE SEEN)
[2018-11-08 22:24] LABS: INR 1.09 (0.83-1.09); PROTHROMBIN TIME (PATIENT) 12.9 SEC (9.7-13.0)
[2018-11-08] MEDS ORDERED: CEFTRIAXONE 1,000 MG in DEXTROSE 5%-WATER - 50 ML IVPB ONE (22:26)
[2018-11-08 22:47] LABS: ALBUMIN 2.6 g/dl (3.4-5.0); ALK PHOS 127 U/L (45-117); BILIRUBIN,TOTAL 0.6 mg/dL (0.2-1); BLOOD UREA NITROGEN 37 mg/dL (7-18); CALCIUM 7.9 mg/dL (8.5-10.1); CHLORIDE 102 mmol/L (98-107); CO2 24 mmol/L (21-32); CREATININE 1.7 mg/dL (0.55-1.3); GLUCOSE,RANDOM 173 mg/dL (74-106); SGPT/ALT 14 U/L (13-61); SODIUM 136 mmol/L (136-145); TOT PROT 6.2 g/dl (6.4-8.2)
[2018-11-08 22:48] LABS: ANION GAP 11 MMOL/L (8-16); POTASSIUM 5.3 mmol/L (3.5-5.1); SGOT/AST 16 U/L (15-37)
[2018-11-08] MEDS ORDERED: FOLIC ACID INJECTION - 1 MG, THIAMINE HCL 100 MG, MULTIVIT INJECTION ADULT 10 ML in SOD... IVPB ONE (22:52)
[2018-11-08] MEDS ORDERED: SODIUM POLYSTYRENE SULFONATE 15 GM/60 ML BOTTLE PO ONE (23:09)
[2018-11-08] MEDS ORDERED: CEFTRIAXONE 1 GM/50 ML BAG ONE (23:35)
[2018-11-08] MEDS ORDERED: ACETAMINOPHEN 325 MG TABLET (FP) ONE (23:35)
[2018-11-09 05:29] LABS: BASO % 0.5 % (0-2.0); EOS % 0.4 % (0-4.5); HEMATOCRIT 32.9 % (32.4-45.2); HEMOGLOBIN 11.2 GM/dL (10.7-15.3); LYMPH % 7.2 % (8-40); MCH 31.3 pg (25.7-33.7); MCHC 33.9 g/dl (32.0-36.0); MEAN CELL VOLUME 92.4 fl (80-96); MEAN PLT VOLUME 9.6 fl (7.5-11.1); MONO % 10.2 % (3.8-10.2); NEUT % 81.7 % (42.8-82.8); PLATELET COUNT 165 K/MM3 (134-434); RBC 3.56 M/mm3 (3.60-5.2); RDW 12.5 % (11.6-15.6); WHITE BLOOD COUNT 12.2 K/mm3 (4.0-10.0)
[2018-11-09 05:59] LABS: ANION GAP 7 MMOL/L (8-16); BLOOD UREA NITROGEN 38 mg/dL (7-18); CALCIUM 7.5 mg/dL (8.5-10.1); CHLORIDE 103 mmol/L (98-107); CO2 27 mmol/L (21-32); CREATININE 1.5 mg/dL (0.55-1.3); GLUCOSE,RANDOM 107 mg/dL (74-106); POTASSIUM 4.4 mmol/L (3.5-5.1); SODIUM 137 mmol/L (136-145)
--- NOTE | 2018-11-09 06:33 | HP ---
Admitting History and Physical - Primary Care Physician PCP: Yasmin Dsouza - Admission Chief Complaint: Generalized Weakness, s/p Fall, R- Hip Pain History of Present Illness: This is a 83 y/o woman with a PMHx of: CAD s/p Quintuple Bypass, HTN, HLD, DM. Who presents to the ED with generalized weakness, decreased appetite, s/p mechanical fall, right hip pain, unable to ambulate. Patient reports having poor PO intake > 3 weeks. She reports while her was assisting her to the bathroom, her legs became weak "felt like jelly" she fell. Patient denies head injury or LOC. She states she ambulates with a walker but does not have the strength to stand by herself. Patient reports having chronic dyspnea uses 2L and sleeps with 3 pillows at home- unchanged. Patient denies fever, dizziness , CP, palpitations, AP, N/V/D, constipation, dysuria. History Source: Patient Limitations to Obtaining History: No Limitations - Past Medical History Cardiovascular: Yes: CAD, HTN, Hyperlipdemia Endocrine: Yes: Diabetes Mellitus - Past Surgical History Past Surgical History: Yes: CABG (quintuple), Cholecystectomy, Hysterectomy - Smoking History Smoking history: Never smoked Have you smoked in the past 12 months: No Aproximately how many cigarettes per day: 0 If you are a former smoker, when did you quit?: 1997 - Alcohol/Substance Use Hx Alcohol Use: No - Social History Usual Living Arrangement: Yes: With Spouse ADL: Family Assistance History of Recent Travel: No Home Medications - Allergies Allergies/Adverse Reactions: Allergies Allergy/AdvReac Type Severity Reaction Status Date / Time No Known Allergies Allergy Verified 11/08/18 18:59 - Home Medications Home Medications: Ambulatory Orders Ascorbate Calcium [Vitamin C] 1,000 mg PO BID 12/11/15 Aspirin [ASA -] 81 mg PO DAILY 12/11/15 Allopurinol [Zyloprim -] 300 mg PO DAILY #30 tablet 12/15/15 Ferrous Gluconate [Iron] 130 mg PO BID 11/01/16 Furosemide [Lasix] 40 mg PO DAILY 11/01/16 Ibandronate Sodium 3 mg IV ASDIR 11/01/16 Metoprolol Succinate [Toprol Xl] 50 mg PO HS 11/01/16 Pioglitazone HCl [Actos] 22.5 mg PO DAILY 11/01/16 Pravastatin Sodium [Pravachol -] 40 mg PO HS 11/01/16 Nitrofurantoin Monohyd/M-Cryst [Macrobid -] 100 mg PO BID #14 capsule 06/26/17 Family Disease History - Family Disease History Family Disease History: Diabetes: Mother, Heart Disease: Mother, CA: Brother ( Liver Ca, age 80) Review of Systems - Review of Systems Constitutional: reports: Chills, Loss of Appetite, Malaise, Weakness Eyes: reports: No Symptoms HENT: reports: No Symptoms Neck: reports: No Symptoms Cardiovascular: reports: Shortness of Breath Respiratory: reports: Cough, Orthopnea, SOB Gastrointestinal: reports: No Symptoms Genitourinary: reports: No Symptoms Breasts: reports: No Symptoms Reported Musculoskeletal: reports: Joint Pain (right hip) Integumentary: reports: No Symptoms Neurological: reports: Unsteady Gait, Weakness Endocrine: reports: No Symptoms Hematology/Lymphatic: reports: No Symptoms Psychiatric: reports: No Symptoms Pain Intensity: 4 Physical Examination Vital Signs: Vital Signs Temperature 98.5 F 11/08/18 18:55 Pulse Rate 72 11/09/18 05:17 Respiratory Rate 20 11/09/18 05:17 Blood Pressure 119/56 L 11/09/18 05:17 O2 Sat by Pulse Oximetry (%) 96 11/09/18 05:17 Constitutional: Yes: Well Nourished, No Distress, Calm, Obese Eyes: Yes: WNL, Conjunctiva Clear, EOM Intact, PERRL HENT: Yes: WNL, Atraumatic, Normocephalic Neck: Yes: WNL, Supple, Trachea Midline Cardiovascular: Yes: WNL, Regular Rate and Rhythm, S1, S2 Respiratory: Yes: Regular, CTA Bilaterally, On Nasal O2, Orthopnea, SOB Gastrointestinal: Yes: Normal Bowel Sounds, Soft, Abdomen, Obese, Tenderness ( RUQ) Breast(s): Yes: WNL Musculoskeletal: Yes: WNL Extremities: Yes: WNL Edema: No Peripheral Pulses WNL: Yes Neurological: Yes: Alert, Oriented, Cran Nerves II-XII Intact, Weakness ...Motor Strength: WNL Psychiatric: Yes: WNL, Alert, Oriented Labs: CBC, BMP 11/09/18 05:10 11/09/18 05:10 Troponin, BNP 11/08/18 11/08/18 20:46 21:09 Troponin I Cancelled < 0.02 B-Natriuretic Peptide Cancelled Intake & Output 11/06/18 11/07/18 11/08/18 11/09/18 23:59 23:59 23:59 23:59 Weight 77.111 kg Current Medications Generic Name Dose Route Start Last Admin Trade Name Freq PRN Reason Stop Dose Admin Heparin Sodium (Porcine) 5,000 unit 11/09/18 10:00 Heparin - SQ BID ELIDA Ceftriaxone Sodium 1 gm/ 50 mls @ 100 mls/hr 11/09/18 22:00 Dextrose IVPB HS ELIDA Protocol Imaging - Results Chest X-ray: Image Reviewed X-ray: Image Reviewed Cat Scan: Report Reviewed, Image Reviewed EKG: Image Reviewed Problem List - Problems (1) UTI (urinary tract infection) Assessment/Plan: UA- +1 protein, +2 leukocyte esterase, 110 WBCs Urine Culture-pending Ceftriaxone given in ED, will continue Monitor CBC, BMP Monitor vitals Code(s): N39.0 - URINARY TRACT INFECTION, SITE NOT SPECIFIED Qualifiers: Urinary tract infection type: site unspecified Hematuria presence: without hematuria Qualified Code(s): N39.0 - Urinary tract infection, site not specified (2) Weakness Assessment/Plan: Likely secondary to UTI vs Dehydration Will treat UTI IVF Appreciate PT Eval Appreciate [employer] consult for STR Monitor vitals Monitor CBC, BMP Fall precautions Code(s): R53.1 - WEAKNESS (3) Fall Assessment/Plan: Likely secondary to weakness R Hip/Pelvis- image neg fx C-Spine CT- image neg fx Code(s): W19.XXXA - UNSPECIFIED FALL, INITIAL ENCOUNTER Qualifiers: Encounter type: initial encounter Qualified Code(s): W19.XXXA - Unspecified fall, initial encounter (4) Acute right hip pain Assessment/Plan: s/p mechanical fall R- Hip/Pelvis Xray- no fx, no dislocation Tylenol prn PT eval Would benefit with STR Code(s): M25.551 - PAIN IN RIGHT HIP (5) HLD (hyperlipidemia) Assessment/Plan: Continue home med Monitor LFTs Code(s): E78.5 - HYPERLIPIDEMIA, UNSPECIFIED (6) CAD (coronary artery disease) of artery bypass graft Assessment/Plan: continue home meds EKG- NSR with TWI pericordal leads, no change compared to prior study Code(s): I25.810 - ATHEROSCLEROSIS OF CABG W/O ANGINA PECTORIS (7) HTN (hypertension) Assessment/Plan: stable continue home meds monitor renal function Code(s): I10 - ESSENTIAL (PRIMARY) HYPERTENSION Qualifiers: Hypertension type: renovascular hypertension Qualified Code(s): I15.0 - Renovascular hypertension Assessment/Plan This is a 83 y/o woman with a PMHx of CAD s/p Quintuple Bypass, HTN, HLD. Admitted for UTI, Generalized Weakness, Unable to Ambulate s/p Mechanical Fall for further evaluation of their emergent condition. Plan: See Problem List FEN Visit type - Emergency Visit Emergency Visit: Yes ED Registration Date: 11/08/18 Care time: The patient presented to the Emergency Department on the above date and was hospitalized for further evaluation of their emergent condition. - New Patient This patient is new to me today: Yes Date on this admission: 11/09/18 - Critical Care Critical Care patient: No
[2018-11-09] MEDS: HEPARIN NA (PORCINE) 5,000 UNITS/ML 1ML VIAL SQ SCH ×2 (09:32→21:05)
--- NOTE | 2018-11-09 11:10 | EKG ---
Test Reason : Blood Pressure : / mmHG Vent. Rate : 077 BPM Atrial Rate : 077 BPM P-R Int : 170 ms QRS Dur : 088 ms QT Int : 398 ms P-R-T Axes : 042 -06 101 degrees QTc Int : 450 ms NORMAL SINUS RHYTHM T WAVE ABNORMALITY, CONSIDER ANTEROLATERAL ISCHEMIA ABNORMAL ECG WHEN COMPARED WITH ECG OF 12-DEC-2015 00:51, T WAVE INVERSION NOW EVIDENT IN ANTERIOR LEADS Confirmed by CINDY LIMA, CRISTIANO ([id number]) on 11/09/2018 11:10:22 AM Referred By: Confirmed By:CRISTIANO WHITE MD
--- NOTE | 2018-11-09 12:49 | PN ---
Progress Note, Physician History of Present Illness: pt seen/ examined in er chart reviewed feels better at bedside - Current Medication List Current Medications: Active Medications Heparin Sodium (Porcine) (Heparin -) 5,000 unit SQ BID [facility] Last Admin: 11/09/18 09:32 Dose: 5,000 unit Ceftriaxone Sodium 1 gm/ (Dextrose) 50 mls @ 100 mls/hr IVPB HS [facility]; Protocol - Objective Vital Signs: Vital Signs Temperature 99 F 11/09/18 11:48 Pulse Rate 84 11/09/18 11:48 Respiratory Rate 15 11/09/18 11:48 Blood Pressure 126/59 L 11/09/18 11:48 O2 Sat by Pulse Oximetry (%) 96 11/09/18 06:59 Constitutional: Yes: No Distress, Calm Eyes: Yes: Conjunctiva Clear Neck: Yes: Supple Respiratory: Yes: CTA Bilaterally Gastrointestinal: Yes: Normal Bowel Sounds, Soft Genitourinary: Yes: Arriaga Present Edema: No Neurological: Yes: Alert Psychiatric: Yes: Alert Labs: CBC, BMP 11/09/18 05:10 11/09/18 05:10 INR, PTT INR 1.09 (0.83-1.09) 11/08/18 21:09 - ....Imaging Chest X-ray: Report Reviewed X-ray: Report Reviewed Cat Scan: Report Reviewed Problem List - Problems (1) Fall Code(s): W19.XXXA - UNSPECIFIED FALL, INITIAL ENCOUNTER Qualifiers: Encounter type: initial encounter Qualified Code(s): W19.XXXA - Unspecified fall, initial encounter (2) UTI (urinary tract infection) Code(s): N39.0 - URINARY TRACT INFECTION, SITE NOT SPECIFIED Qualifiers: Urinary tract infection type: site unspecified Hematuria presence: without hematuria Qualified Code(s): N39.0 - Urinary tract infection, site not specified (3) Weakness Code(s): R53.1 - WEAKNESS (4) CAD (coronary artery disease) of artery bypass graft Code(s): I25.810 - ATHEROSCLEROSIS OF CABG W/O ANGINA PECTORIS (5) HTN (hypertension) Code(s): I10 - ESSENTIAL (PRIMARY) HYPERTENSION Qualifiers: Hypertension type: renovascular hypertension Qualified Code(s): I15.0 - 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
[2018-11-09] MEDS ORDERED: ACETAMINOPHEN 325 MG TABLET (FP) PO PRN (19:36)
[2018-11-09] MEDS ORDERED: ACETAMINOPHEN 325 MG TABLET (FP) ONE (20:28)
[2018-11-09] MEDS: ATORVASTATIN CA 10 MG TABLET (FP) PO SCH (21:05)
[2018-11-09] MEDS: CEFTRIAXONE 1 GM in DEXTROSE 5%-WATER - 50 ML IVPB SCH (21:05)
[2018-11-09] MEDS ORDERED: ATORVASTATIN CA 10 MG TABLET (FP) ONE (21:09)
[2018-11-09] MEDS ORDERED: CEFTRIAXONE 1 GM/50 ML BAG ONE (21:09)
[2018-11-09] MEDS ORDERED: HEPARIN NA (PORCINE) 5,000 UNITS/ML 1ML VIAL ONE (21:09)
[2018-11-10 08:10] LABS: BASO % 0.4 % (0-2.0); EOS % 1.3 % (0-4.5); HEMATOCRIT 36.5 % (32.4-45.2); HEMOGLOBIN 12.2 GM/dL (10.7-15.3); LYMPH % 5.9 % (8-40); MCH 31.1 pg (25.7-33.7); MCHC 33.4 g/dl (32.0-36.0); MEAN CELL VOLUME 92.9 fl (80-96); MEAN PLT VOLUME 10.8 fl (7.5-11.1); NEUT % 83.4 % (42.8-82.8); PLATELET COUNT 166 K/MM3 (134-434); RBC 3.92 M/mm3 (3.60-5.2); RDW 12.8 % (11.6-15.6); WHITE BLOOD COUNT 9.8 K/mm3 (4.0-10.0)
[2018-11-10 08:12] LABS: ALBUMIN 2.2 g/dl (3.4-5.0); ALK PHOS 113 U/L (45-117); ANION GAP 10 MMOL/L (8-16); BILIRUBIN,TOTAL 0.6 mg/dL (0.2-1); BLOOD UREA NITROGEN 35 mg/dL (7-18); CHLORIDE 104 mmol/L (98-107); CO2 26 mmol/L (21-32); CREATININE 1.3 mg/dL (0.55-1.3); GLUCOSE,RANDOM 90 mg/dL (74-106); POTASSIUM 4.2 mmol/L (3.5-5.1); SGOT/AST 20 U/L (15-37); SGPT/ALT 13 U/L (13-61); SODIUM 140 mmol/L (136-145); TOT PROT 5.6 g/dl (6.4-8.2)
[2018-11-10] MEDS ORDERED: FUROSEMIDE 40 MG TABLET (FP) PO SCH (10:00)
[2018-11-10] MEDS ORDERED: ALLOPURINOL 300 MG TABLET (FP) PO SCH (10:00)
[2018-11-10] MEDS: HEPARIN NA (PORCINE) 5,000 UNITS/ML 1ML VIAL SQ SCH ×2 (11:52→21:28)
[2018-11-10] MEDS: ASPIRIN 81 MG CHEWABLE TABLETS PO SCH (11:52)
--- NOTE | 2018-11-10 13:44 | PN ---
Progress Note (short form) - Note Progress Note: Vital Signs - 24 hr Family at bedside pt c/o occasional sharp pain in chest has cough-- dry no SOB pain in hip 11/09/18 11/09/18 11/10/18 18:00 20:00 00:06 Temperature 99.2 F 98.4 F Pulse Rate 90 87 74 Respiratory 17 18 18 Rate Blood Pressure 144/72 146/57 L 153/55 L O2 Sat by Pulse 92 L Oximetry (%) 11/10/18 11/10/18 06:39 12:11 Temperature 99.2 F 98.4 F Pulse Rate 79 78 Respiratory 18 18 Rate Blood Pressure 132/61 153/65 O2 Sat by Pulse Oximetry (%) Current Medications Generic Name Dose Route Start Last Admin Trade Name Freq PRN Reason Stop Dose Admin Acetaminophen 650 mg 11/09/18 19:36 11/09/18 20:31 Tylenol - PO 650 mg Q6H PRN Administration PAIN OR FEVER Allopurinol 300 mg 11/10/18 10:00 11/10/18 11:52 Zyloprim - PO 300 mg DAILY ELIDA Administration Aspirin 81 mg 11/10/18 10:00 11/10/18 11:52 Asa - PO 81 mg DAILY ELIDA Administration Atorvastatin Calcium 10 mg 11/09/18 22:00 11/09/18 21:05 Lipitor - PO 10 mg HS ELIDA Administration Heparin Sodium (Porcine) 5,000 unit 11/09/18 10:00 11/10/18 11:52 Heparin - SQ 5,000 unit BID ELIDA Administration Ceftriaxone Sodium 1 gm/ 50 mls @ 100 mls/hr 11/09/18 22:00 11/09/18 21:05 Dextrose IVPB 100 mls/hr HS ELIDA Administration Protocol Metoprolol Succinate 50 mg 11/09/18 22:00 11/09/18 21:05 Toprol Xl - PO 50 mg HS ELIDA Administration Non-Formulary Medication 130 mg 11/09/18 22:00 Ferrous Gluconate [Iron] PO BID [facility] Laboratory Results - last 24 hr 11/10/18 11/10/18 06:30 06:30 WBC 9.8 RBC 3.92 Hgb 12.2 Hct 36.5 MCV 92.9 MCH 31.1 MCHC 33.4 RDW 12.8 Plt Count 166 MPV 10.8 D Absolute Neuts (auto) 8.2 H Neutrophils % 83.4 H Lymphocytes % 5.9 L Monocytes % 9.0 Eosinophils % 1.3 D Basophils % 0.4 Nucleated RBC % 0 Sodium 140 Potassium 4.2 Chloride 104 Carbon Dioxide 26 Anion Gap 10 BUN 35 H Creatinine 1.3 Creat Clearance w eGFR 39.12 Random Glucose 90 Calcium 8.0 L Total Bilirubin 0.6 AST 20 ALT 13 Alkaline Phosphatase 113 Total Protein 5.6 L Albumin 2.2 L S1 S2 RRR Lungs ronchi+ scattered Abd- soft, NT no edema PLAN meds noted cardiology and ID eval nebs prn PT eval family agreeable to SNF Problem List - Problems (1) Acute kidney injury Code(s): N17.9 - ACUTE KIDNEY FAILURE, UNSPECIFIED (2) Acute right hip pain Code(s): M25.551 - PAIN IN RIGHT HIP (3) Fall Code(s): W19.XXXA - UNSPECIFIED FALL, INITIAL ENCOUNTER Qualifiers: Encounter type: initial encounter Qualified Code(s): W19.XXXA - Unspecified fall, initial encounter (4) HLD (hyperlipidemia) Code(s): E78.5 - HYPERLIPIDEMIA, UNSPECIFIED (5) UTI (urinary tract infection) Code(s): N39.0 - URINARY TRACT INFECTION, SITE NOT SPECIFIED Qualifiers: Urinary tract infection type: site unspecified Hematuria presence: without hematuria Qualified Code(s): N39.0 - Urinary tract infection, site not specified (6) Weakness Code(s): R53.1 - WEAKNESS (7) CAD (coronary artery disease) of artery bypass graft Code(s): I25.810 - ATHEROSCLEROSIS OF CABG W/O ANGINA PECTORIS
[2018-11-10] MEDS ORDERED: SACUBITRIL/VALSARTAN 24 MG-26 MG TABLET PO SCH (14:00)
[2018-11-10] MEDS ORDERED: ALBUTEROL SO4 0.083% IH SOL 2.5 MG/3 ML VIAL.NEB. NEB PRN (14:43)
[2018-11-10] MEDS ORDERED: cefTRIAXone SODIUM 1 GM VIAL ONE (20:34)
[2018-11-10] MEDS ORDERED: DEXTROSE 5%-WATER - 50 ML IVPB ONE (20:34)
[2018-11-10] MEDS: CEFTRIAXONE 1 GM in DEXTROSE 5%-WATER - 50 ML IVPB SCH (21:26)
[2018-11-10] MEDS: ATORVASTATIN CA 10 MG TABLET (FP) PO SCH (21:27)
[2018-11-10] MEDS: MIRTAZAPINE 15 MG TABLET (FP) PO SCH (21:28)
[2018-11-10] MEDS: metoPROLOL SUCCINATE 25 MG TAB.SR.24H (FP) PO SCH (21:29)
[2018-11-10] MEDS: DONEPEZIL HCL 5 MG TABLET (FP) PO SCH (21:30)
[2018-11-11 07:56] LABS: ANION GAP 9 MMOL/L (8-16); BLOOD UREA NITROGEN 32 mg/dL (7-18); CHLORIDE 105 mmol/L (98-107); CO2 25 mmol/L (21-32); CREATININE 1.3 mg/dL (0.55-1.3); GLUCOSE,RANDOM 96 mg/dL (74-106); POTASSIUM 4.3 mmol/L (3.5-5.1); SODIUM 139 mmol/L (136-145)
--- NOTE | 2018-11-11 09:59 | CON.ID ---
Consult Consult Specialty:: infectious diseases Referred by:: Reason for Consultation:: weakness,uti - History of Present Illness Chief Complaint: weakness and fall because of weakness History of Present Illness: 83 y/o woman with a PMHx of: CAD s/p Quintuple Bypass, HTN, HLD, DM. admitted to the hospitl because of generalized weakness ,according to the patient she was feeling weak and then suddenly her legs gave awayand she fell . Patient denies head injury or LOC. She states she ambulates with a walker but does not have the strength to stand by herself. Patient reports having chronic dyspnea uses 2L and sleeps with 3 pillows at home- unchanged. Patient denies fever, dizziness, CP, palpitations, AP, N/V/D, constipation, dysuria. patient does mention that her appetitie has been poor for some time and she has not felt like herself for some time curently she has started feeling better - History Source History Provided By: Patient Limitations to Obtaining History: No Limitations - Past Medical History Cardio/Vascular: Yes: CAD, HTN, Hyperlipdemia ...: No Endocrine: Yes: Diabetes Mellitus - Past Surgical History Past Surgical History: Yes: CABG (quintuple), Cholecystectomy, Hysterectomy - Alcohol/Substance Use Hx Alcohol Use: No - Smoking History Smoking history: Never smoked Have you smoked in the past 12 months: No Aproximately how many cigarettes per day: 0 If you are a former smoker, when did you quit?: 1997 - Social History ADL: Family Assistance History of Recent Travel: No Home Medications - Allergies Allergies/Adverse Reactions: Allergies Allergy/AdvReac Type Severity Reaction Status Date / Time No Known Allergies Allergy Verified 11/08/18 18:59 - Home Medications Home Medications: Ambulatory Orders Ascorbate Calcium [Vitamin C] 1,000 mg PO BID 12/11/15 Aspirin [ASA -] 81 mg PO DAILY 12/11/15 Allopurinol [Zyloprim -] 300 mg PO DAILY #30 tablet 12/15/15 Ferrous Gluconate [Iron] 130 mg PO BID 11/01/16 Furosemide [Lasix] 40 mg PO DAILY 11/01/16 Ibandronate Sodium 3 mg IV ASDIR 11/01/16 Metoprolol Succinate [Toprol Xl] 50 mg PO HS 11/01/16 Pioglitazone HCl [Actos] 22.5 mg PO DAILY 11/01/16 Pravastatin Sodium [Pravachol -] 40 mg PO HS 11/01/16 Nitrofurantoin Monohyd/M-Cryst [Macrobid -] 100 mg PO BID #14 capsule 06/26/17 Family Disease History - Family Disease History Family Disease History: Diabetes: Mother, Heart Disease: Mother, CA: Brother ( Liver Ca, age 80) Review of Systems - Review of Systems Constitutional: reports: Loss of Appetite, Weakness Eyes: reports: No Symptoms HENT: reports: No Symptoms Neck: reports: No Symptoms Cardiovascular: reports: No Symptoms Respiratory: reports: No Symptoms Gastrointestinal: reports: No Symptoms Genitourinary: reports: No Symptoms Musculoskeletal: reports: Other (weakness) Integumentary: reports: No Symptoms Neurological: reports: No Symptoms Endocrine: reports: No Symptoms Hematology/Lymphatic: reports: No Symptoms Psychiatric: reports: No Symptoms Physical Exam Vital Signs: Vital Signs Temperature 98.4 F 11/11/18 06:00 Pulse Rate 72 11/11/18 06:00 Respiratory Rate 18 11/11/18 06:00 Blood Pressure 138/59 L 11/11/18 06:00 O2 Sat by Pulse Oximetry (%) 98 11/10/18 21:00 Constitutional: Yes: No Distress, Calm Eyes: Yes: Conjunctiva Clear HENT: Yes: Atraumatic, Normocephalic Neck: Yes: Supple, Trachea Midline Cardiovascular: Yes: Regular Rate and Rhythm Respiratory: Yes: Regular, CTA Bilaterally, On Nasal O2 Gastrointestinal: Yes: Normal Bowel Sounds, Soft Musculoskeletal: Yes: WNL Extremities: Yes: WNL Neurological: Yes: Alert, Oriented Psychiatric: Yes: Alert, Oriented Labs: CBC, BMP 11/10/18 06:30 11/11/18 06:00 Imaging - Results Chest X-ray: Report Reviewed, Image Reviewed X-ray: Report Reviewed, Image Reviewed Cat Scan: Report Reviewed, Image Reviewed Assessment/Plan Problem List - Problems (1) Acute kidney injury Code(s): N17.9 - ACUTE KIDNEY FAILURE, UNSPECIFIED (2) Acute right hip pain Code(s): M25.551 - PAIN IN RIGHT HIP (3) Fall Code(s): W19.XXXA - UNSPECIFIED FALL, INITIAL ENCOUNTER Qualifiers: Encounter type: initial encounter Qualified Code(s): W19.XXXA - Unspecified fall, initial encounter (4) HLD (hyperlipidemia) Code(s): E78.5 - HYPERLIPIDEMIA, UNSPECIFIED (5) UTI (urinary tract infection) Code(s): N39.0 - URINARY TRACT INFECTION, SITE NOT SPECIFIED Qualifiers: Urinary tract infection type: site unspecified Hematuria presence: without hematuria Qualified Code(s): N39.0 - Urinary tract infection, site not specified (6) Weakness Code(s): R53.1 - WEAKNESS (7) CAD (coronary artery disease) of artery bypass graft Code(s): I25.810 - ATHEROSCLEROSIS OF CABG W/O ANGINA PECTORIS patient has a h/o esbl in the past according to notes plan we will continue current abx for the time being await for identification and sensitivities once we have that will decide final plan hydration nutrition
[2018-11-11 11:50] VITALS: BMI 30.6
[2018-11-11] MEDS: ASPIRIN 81 MG CHEWABLE TABLETS PO SCH (11:57)
[2018-11-11] MEDS: HEPARIN NA (PORCINE) 5,000 UNITS/ML 1ML VIAL SQ SCH ×2 (11:57→21:20)
[2018-11-11] MEDS: MULTIVITAMINS (DAILY MVI) TABLET (FP) PO SCH (11:57)
--- NOTE | 2018-11-11 13:22 | EKG ---
Test Reason : Blood Pressure : / mmHG Vent. Rate : 087 BPM Atrial Rate : 087 BPM P-R Int : 156 ms QRS Dur : 092 ms QT Int : 374 ms P-R-T Axes : 053 001 090 degrees QTc Int : 450 ms NORMAL SINUS RHYTHM NONSPECIFIC T WAVE ABNORMALITY ABNORMAL ECG WHEN COMPARED WITH ECG OF 09-NOV-2018 01:18, NO SIGNIFICANT CHANGE WAS FOUND Confirmed by JAREN LAGUNA MD ([id number]) on 11/11/2018 1:21:27 PM Referred By: Confirmed By:JAREN LAGUNA MD
--- NOTE | 2018-11-11 13:35 | CON.CARD ---
Consult Consult Specialty:: Cardiology Referred by:: Ginger Rivera MD Reason for Consultation:: CAD s/p CABG - History of Present Illness Chief Complaint: Weakness s/p mechanical fall History of Present Illness: This is a 83 y/o woman with a h/o CAD s/p CABGx5, HTN, HLD, DM who presents to the ED with generalized weakness, decreased appetite, s/p mechanical fall, right hip pain, unable to ambulate. Patient reports having poor PO intake > 3 weeks. She reports while her was assisting her to the bathroom, her legs became weak "felt like jelly" she fell. Patient denies head injury or LOC. She states she ambulates with a walker but does not have the strength to stand by herself. Patient reports having chronic dyspnea uses 2L and sleeps with 3 pillows at home- unchanged. Patient denies fever, dizziness, CP, palpitations, true syncope, orthopnea, PND or LE edema. Noted to have klebsiella UTI, acute on ckd and leukocytosis improving with therapy. - History Source History Provided By: Patient Limitations to Obtaining History: No Limitations - Past Medical History Cardio/Vascular: Yes: CAD, HTN, Hyperlipdemia ...: No Endocrine: Yes: Diabetes Mellitus - Past Surgical History Past Surgical History: Yes: CABG (quintuple), Cholecystectomy, Hysterectomy - Alcohol/Substance Use Hx Alcohol Use: No - Smoking History Smoking history: Never smoked Have you smoked in the past 12 months: No Aproximately how many cigarettes per day: 0 If you are a former smoker, when did you quit?: 1997 - Social History ADL: Family Assistance History of Recent Travel: No Home Medications - Allergies Allergies/Adverse Reactions: Allergies Allergy/AdvReac Type Severity Reaction Status Date / Time No Known Allergies Allergy Verified 11/08/18 18:59 - Home Medications Home Medications: Ambulatory Orders Ascorbate Calcium [Vitamin C] 1,000 mg PO BID 12/11/15 Aspirin [ASA -] 81 mg PO DAILY 12/11/15 Allopurinol [Zyloprim -] 300 mg PO DAILY #30 tablet 12/15/15 Ferrous Gluconate [Iron] 130 mg PO BID 11/01/16 Furosemide [Lasix] 40 mg PO DAILY 11/01/16 Ibandronate Sodium 3 mg IV ASDIR 11/01/16 Metoprolol Succinate [Toprol Xl] 50 mg PO HS 11/01/16 Pioglitazone HCl [Actos] 22.5 mg PO DAILY 11/01/16 Pravastatin Sodium [Pravachol -] 40 mg PO HS 11/01/16 Nitrofurantoin Monohyd/M-Cryst [Macrobid -] 100 mg PO BID #14 capsule 06/26/17 Family Disease History - Family Disease History Family Disease History: Diabetes: Mother, Heart Disease: Mother, CA: Brother ( Liver Ca, age 80) Review of Systems - Review of Systems Constitutional: reports: Weakness Vital Signs: Vital Signs Temperature 98.4 F 11/11/18 06:00 Pulse Rate 80 11/11/18 12:00 Respiratory Rate 18 11/11/18 12:00 Blood Pressure 121/64 11/11/18 12:00 O2 Sat by Pulse Oximetry (%) 98 11/10/18 21:00 Constitutional: Yes: No Distress, Calm Neck: Yes: Supple Respiratory: Yes: Regular, CTA Bilaterally Gastrointestinal: Yes: Normal Bowel Sounds, Soft, Abdomen, Obese Cardiovascular: Yes: Regular Rate and Rhythm JVD: No Carotid Bruit: No Heart Sounds: Yes: S1, S2 Edema: No - Other Data Labs, Other Data: CBC, BMP 11/10/18 06:30 11/11/18 06:00 INR, PTT INR 1.09 (0.83-1.09) 11/08/18 21:09 NSR Prior Cardiac Procedures: CABG Ejection Fraction %: LVEF > or = 40 % Imaging - Results Chest X-ray: Report Reviewed (Mild congestion) Cat Scan: Report Reviewed (HCT: No acute changes) Problem List - Problems (1) UTI due to Klebsiella species Code(s): N39.0 - URINARY TRACT INFECTION, SITE NOT SPECIFIED; B96.1 - KLEBSIELLA PNEUMONIAE THE CAUSE OF DISEASES CLASSD ELSWHR (2) Acute kidney injury Code(s): N17.9 - ACUTE KIDNEY FAILURE, UNSPECIFIED (3) HLD (hyperlipidemia) Code(s): E78.5 - HYPERLIPIDEMIA, UNSPECIFIED Qualifiers: Hyperlipidemia type: pure hypercholesterolemia Qualified Code(s): E78.00 - Pure hypercholesterolemia, unspecified; E78.0 - Pure hypercholesterolemia (4) CAD (coronary artery disease) of artery bypass graft Code(s): I25.810 - ATHEROSCLEROSIS OF CABG W/O ANGINA PECTORIS Qualifiers: [place] vs. transplanted heart: [place] heart Associated angina: without angina Qualified Code(s): I25.810 - Atherosclerosis of coronary artery bypass graft(s) without angina pectoris (5) HTN (hypertension) Code(s): I10 - ESSENTIAL (PRIMARY) HYPERTENSION Qualifiers: Hypertension type: renovascular hypertension Qualified Code(s): I15.0 - Renovascular hypertension (6) Type 2 diabetes mellitus Code(s): E11.9 - TYPE 2 DIABETES MELLITUS WITHOUT COMPLICATIONS Qualifiers: Diabetes mellitus [facility] insulin use: without terminal operator use (7) Weakness Code(s): R53.1 - WEAKNESS Assessment/Plan 1. Acute on CKD pre-renal and microalbuminuria resolving 2. Klebsiella UTI 3. CAD s/p CABG 4. Type 2 DM 5. Hyperlipidemia P:1. Abx course per C&S, judicious hydration with monitor renal recovery 2. Continue ASA 81 qd, Toprol XL 25 qd, Pravachol 40 qd, start losartan 25 qd once renal fxn stabilizes, (Entresto indicated if LVEF<40%) 3. PT->SNF 4. Will review office records, thank you for consultative opportunity
--- NOTE | 2018-11-11 14:44 | PN ---
Progress Note (short form) - Note Progress Note: feels well has cough-- dry no SOB Vital Signs - 24 hr 11/10/18 11/10/18 11/10/18 15:27 19:26 21:00 Temperature 98.2 F 99.1 F Pulse Rate 70 77 Respiratory 20 20 18 Rate Blood Pressure 130/61 141/65 O2 Sat by Pulse 98 Oximetry (%) 11/11/18 11/11/18 11/11/18 01:00 06:00 12:00 Temperature 99.4 F 98.4 F Pulse Rate 79 72 80 Respiratory 18 18 18 Rate Blood Pressure 127/61 138/59 L 121/64 O2 Sat by Pulse Oximetry (%) Current Medications Generic Name Dose Route Start Last Admin Trade Name Freq PRN Reason Stop Dose Admin Acetaminophen 650 mg 11/09/18 19:36 11/09/18 20:31 Tylenol - PO 650 mg Q6H PRN Administration PAIN OR FEVER Albuterol Sulfate 1 amp 11/10/18 14:43 Ventolin 0.083% Nebulizer Soln - NEB Q6H PRN SHORT OF BREATH/WHEEZING Aspirin 81 mg 11/10/18 10:00 11/11/18 11:57 Asa - PO 81 mg DAILY ELIDA Administration Atorvastatin Calcium 10 mg 11/09/18 22:00 11/10/18 21:27 Lipitor - PO 10 mg HS ELIDA Administration Donepezil HCl 5 mg 11/10/18 22:00 11/10/18 21:30 Aricept - PO 5 mg HS ELIDA Administration Heparin Sodium (Porcine) 5,000 unit 11/09/18 10:00 11/11/18 11:57 Heparin - SQ 5,000 unit BID ELIDA Administration Ceftriaxone Sodium 1 gm/ 50 mls @ 100 mls/hr 11/09/18 22:00 11/10/18 21:26 Dextrose IVPB 100 mls/hr HS ELIDA Administration Protocol Metoprolol Succinate 25 mg 11/10/18 13:52 11/10/18 21:29 Toprol Xl - PO 25 mg HS ELIDA Administration Mirtazapine 7.5 mg 11/10/18 22:00 11/10/18 21:28 Remeron - PO 7.5 mg HS ELIDA Administration Multivitamins/Minerals/Vitamin C 1 tab 11/11/18 10:00 11/11/18 11:57 Tab-A-Vit - PO 1 tab DAILY ELIDA Administration Non-Formulary Medication 130 mg 11/09/18 22:00 Ferrous Gluconate [Iron] PO BID ELIDA Sacubitril/Valsartan 0.5 tab 11/10/18 14:00 Entresto 24 Mg-26 Mg Tablet PO BID ELIDA Laboratory Results - last 24 hr 11/11/18 06:00 Sodium 139 Potassium 4.3 Chloride 105 Carbon Dioxide 25 Anion Gap 9 BUN 32 H Creatinine 1.3 Creat Clearance w eGFR 39.12 Random Glucose 96 Calcium 8.0 L S1 S2 RRR Lungs ronchi+ scattered Abd- soft, NT no edema PLAN meds noted cardiology and ID eval appreciated nebs prn PT eval family agreeable to SNF Problem List - Problems (1) Acute kidney injury Code(s): N17.9 - ACUTE KIDNEY FAILURE, UNSPECIFIED (2) Acute right hip pain Code(s): M25.551 - PAIN IN RIGHT HIP (3) Fall Code(s): W19.XXXA - UNSPECIFIED FALL, INITIAL ENCOUNTER Qualifiers: Encounter type: initial encounter Qualified Code(s): W19.XXXA - Unspecified fall, initial encounter (4) HLD (hyperlipidemia) Code(s): E78.5 - HYPERLIPIDEMIA, UNSPECIFIED Qualifiers: Hyperlipidemia type: pure hypercholesterolemia Qualified Code(s): E78.00 - Pure hypercholesterolemia, unspecified; E78.0 - Pure hypercholesterolemia (5) UTI (urinary tract infection) Code(s): N39.0 - URINARY TRACT INFECTION, SITE NOT SPECIFIED Qualifiers: Urinary tract infection type: site unspecified Hematuria presence: without hematuria Qualified Code(s): N39.0 - Urinary tract infection, site not specified (6) Weakness Code(s): R53.1 - WEAKNESS (7) CAD (coronary artery disease) of artery bypass graft Code(s): I25.810 - ATHEROSCLEROSIS OF CABG W/O ANGINA PECTORIS Qualifiers: [place] vs. transplanted heart: [place] heart Associated angina: without angina Qualified Code(s): I25.810 - Atherosclerosis of coronary artery bypass graft(s) without angina pectoris
[2018-11-11] MEDS ORDERED: cefTRIAXone SODIUM 1 GM VIAL ONE (20:40)
[2018-11-11] MEDS ORDERED: DEXTROSE 5%-WATER - 50 ML IVPB ONE (20:40)
[2018-11-11] MEDS: ATORVASTATIN CA 10 MG TABLET (FP) PO SCH (21:21)
[2018-11-11] MEDS: metoPROLOL SUCCINATE 25 MG TAB.SR.24H (FP) PO SCH (21:21)
[2018-11-11] MEDS: CEFTRIAXONE 1 GM in DEXTROSE 5%-WATER - 50 ML IVPB SCH (21:21)
[2018-11-11] MEDS: DONEPEZIL HCL 5 MG TABLET (FP) PO SCH (21:51)
[2018-11-12] MEDS: MIRTAZAPINE 15 MG TABLET (FP) PO SCH (07:37)
[2018-11-12 07:46] LABS: ANION GAP 7 MMOL/L (8-16); BLOOD UREA NITROGEN 37 mg/dL (7-18); CALCIUM 8.3 mg/dL (8.5-10.1); CHLORIDE 104 mmol/L (98-107); CO2 26 mmol/L (21-32); CREATININE 1.4 mg/dL (0.55-1.3); GLUCOSE,RANDOM 101 mg/dL (74-106); POTASSIUM 4.5 mmol/L (3.5-5.1); SODIUM 138 mmol/L (136-145)
--- NOTE | 2018-11-12 10:06 | DS ---
Physical Examination Vital Signs: Vital Signs Temperature 98.4 F 11/12/18 05:02 Pulse Rate 76 11/12/18 05:02 Respiratory Rate 20 11/12/18 05:02 Blood Pressure 136/57 L 11/12/18 05:02 O2 Sat by Pulse Oximetry (%) 98 11/11/18 21:00 Findings/Remarks: Patient seen and examined Chart reviewed Alert and awake Comfortable Constitutional: Yes: No Distress, Calm Eyes: Yes: Conjunctiva Clear Neck: Yes: Supple Cardiovascular: Yes: Regular Rate and Rhythm Respiratory: Yes: CTA Bilaterally Gastrointestinal: Yes: Normal Bowel Sounds, Soft Edema: No Labs: CBC, BMP 11/10/18 06:30 11/12/18 06:30 Discharge Summary Reason For Visit: ACUTE KIDNEY INJURY/URINARY TRACT INFECTION Current Active Problems Acute kidney injury (Acute) Acute right hip pain (Acute) Fall (Acute) HLD (hyperlipidemia) (Acute) Type 2 diabetes mellitus (Acute) UTI (urinary tract infection) (Acute) UTI due to Klebsiella species (Acute) Weakness (Acute) Hospital Course: admitted due to toxic metabolic encephalopathy due to UTI Treated with antibiotics much better Stable Discharge today Medications reconciled Discussed with nursing staff Condition: Stable - Instructions Referrals: Bryce Ash MD [Primary Care Provider] - Disposition: HOME - Home Medications Comprehensive Discharge Medication List: Ambulatory Orders Ascorbate Calcium [Vitamin C] 1,000 mg PO BID 12/11/15 Aspirin [ASA -] 81 mg PO DAILY 12/11/15 Allopurinol [Zyloprim -] 300 mg PO DAILY #30 tablet 12/15/15 Ferrous Gluconate [Iron] 130 mg PO BID 11/01/16 Furosemide [Lasix] 40 mg PO DAILY 11/01/16 Pioglitazone HCl [Actos] 22.5 mg PO DAILY 11/01/16 Pravastatin Sodium [Pravachol -] 40 mg PO HS 11/01/16 Donepezil HCl [Aricept -] 5 mg PO HS tablet 11/12/18 Heparin - 5,000 unit SQ BID vial 11/12/18 Metoprolol Succinate [Toprol XL -] 25 mg PO HS tab.sr.24h 11/12/18 Mirtazapine [Remeron -] 7.5 mg PO HS tablet 11/12/18 Multivitamins [Multivit ([facility] Formulary)] 1 tab PO DAILY tab 11/12/18 Sacubitril/Valsartan [Entresto 24 mg-26 mg Tablet] 1tab PO BID tablet 11/12/18 Solifenacin Succinate [Vesicare -] 5 mg PO DAILY #30 tab 11/12/18
[2018-11-12] MEDS: HEPARIN NA (PORCINE) 5,000 UNITS/ML 1ML VIAL SQ SCH (10:09)
[2018-11-12] MEDS: ASPIRIN 81 MG CHEWABLE TABLETS PO SCH (10:09)
[2018-11-12] MEDS: MULTIVITAMINS (DAILY MVI) TABLET (FP) PO SCH (10:09)
[2018-11-12] MEDS ORDERED: SACUBITRIL/VALSARTAN 24 MG-26 MG TABLET PO SCH (11:00)
[2018-11-12] MEDS ORDERED: SOLIFENACIN SUCCINATE 5 MG TAB (FP) PO SCH (11:00)
[2018-11-12] MEDS ORDERED: FERROUS GLUCONATE 324 MG TAB (FP) PO SCH (11:00)
--- NOTE | 2018-11-12 12:27 | PN ---
Progress Note, Physician History of Present Illness: Tolerating PT, denies further near or true syncope. - Current Medication List Current Medications: Active Medications Acetaminophen (Tylenol -) 650 mg PO Q6H PRN PRN Reason: PAIN OR FEVER Last Admin: 11/09/18 20:31 Dose: 650 mg Albuterol Sulfate (Ventolin 0.083% Nebulizer Soln -) 1 amp NEB Q6H PRN PRN Reason: SHORT OF BREATH/WHEEZING Aspirin (Asa -) 81 mg PO DAILY [facility] Last Admin: 11/12/18 10:09 Dose: 81 mg Atorvastatin Calcium (Lipitor -) 10 mg PO [facility] Last Admin: 11/11/18 21:21 Dose: 10 mg Donepezil HCl (Aricept -) 5 mg PO [facility] Last Admin: 11/11/18 21:51 Dose: 5 mg Ferrous Gluconate (Fergon -) 324 mg PO BID [facility] Last Admin: 11/12/18 11:35 Dose: 324 mg Heparin Sodium (Porcine) (Heparin -) 5,000 unit SQ BID [facility] Last Admin: 11/12/18 10:09 Dose: 5,000 unit Ceftriaxone Sodium 1 gm/ (Dextrose) 50 mls @ 100 mls/hr IVPB [facility]; Protocol Last Admin: 11/11/18 21:21 Dose: 100 mls/hr Metoprolol Succinate (Toprol Xl -) 25 mg PO [facility] Last Admin: 11/11/18 21:21 Dose: 25 mg Mirtazapine (Remeron -) 7.5 mg PO [facility] Last Admin: 11/12/18 07:37 Dose: Not Given Multivitamins/Minerals/Vitamin C (Tab-A-Vit -) 1 tab PO DAILY [facility] Last Admin: 11/12/18 10:09 Dose: 1 tab Sacubitril/Valsartan (Entresto 24 Mg-26 Mg Tablet) 1 tab PO BID [facility] Last Admin: 11/12/18 11:34 Dose: 1 tab Solifenacin (Vesicare -) 5 mg PO DAILY [facility] Last Admin: 11/12/18 11:34 Dose: 5 mg - Objective Vital Signs: Vital Signs Temperature 98.8 F 11/12/18 10:00 Pulse Rate 74 11/12/18 10:00 Respiratory Rate 20 11/12/18 10:00 Blood Pressure 122/51 L 11/12/18 10:00 O2 Sat by Pulse Oximetry (%) 95 11/12/18 09:00 Constitutional: Yes: No Distress, Calm, Thin Neck: Yes: Supple Cardiovascular: Yes: Regular Rate and Rhythm Respiratory: Yes: Regular, CTA Bilaterally Gastrointestinal: Yes: Normal Bowel Sounds, Soft Edema: No Labs: CBC, BMP 11/10/18 06:30 11/12/18 06:30 INR, PTT INR 1.09 (0.83-1.09) 11/08/18 21:09 Problem List - Problems (1) UTI due to Klebsiella species Code(s): N39.0 - URINARY TRACT INFECTION, SITE NOT SPECIFIED; B96.1 - KLEBSIELLA PNEUMONIAE THE CAUSE OF DISEASES CLASSD ELSWHR (2) Acute kidney injury Code(s): N17.9 - ACUTE KIDNEY FAILURE, UNSPECIFIED (3) HLD (hyperlipidemia) Code(s): E78.5 - HYPERLIPIDEMIA, UNSPECIFIED Qualifiers: Hyperlipidemia type: pure hypercholesterolemia Qualified Code(s): E78.00 - Pure hypercholesterolemia, unspecified; E78.0 - Pure hypercholesterolemia (4) CAD (coronary artery disease) of artery bypass graft Code(s): I25.810 - ATHEROSCLEROSIS OF CABG W/O ANGINA PECTORIS Qualifiers: [place] vs. transplanted heart: [place] heart Associated angina: without angina Qualified Code(s): I25.810 - Atherosclerosis of coronary artery bypass graft(s) without angina pectoris (5) HTN (hypertension) Code(s): I10 - ESSENTIAL (PRIMARY) HYPERTENSION Qualifiers: Hypertension type: renovascular hypertension Qualified Code(s): I15.0 - Renovascular hypertension (6) Type 2 diabetes mellitus Code(s): E11.9 - TYPE 2 DIABETES MELLITUS WITHOUT COMPLICATIONS Qualifiers: Diabetes mellitus long-term insulin use: without termite control technician use (7) Weakness Code(s): R53.1 - WEAKNESS Assessment/Plan 04/03/2018 Moderate-severe decreased LVEF 30-35%, impaired LV relaxation, mod LAE, normal RV size and fxn, mild FERNANDO 1.0 cm^2, mild-mod MR, RVSP 45 mm Hg 01/17/2017 Lexiscan Myoview: moderate size distal anterior, anterolateral scar 1. Acute on CKD pre-renal and microalbuminuria resolving 2. Klebsiella UTI 3. CAD s/p SD, CABG 4. LV systolic dysfunction 5. Type 2 DM 6. Hyperlipidemia 7. Hypertensive heart disease 8. Asymptomatic mod-severe carotid stenosis P:1. Abx course per C&S, judicious hydration with monitor renal recovery 2. Continue ASA 81 qd, Toprol XL 25 qd, Pravachol 40 qd, Entresto 24/26 bid 3. PT->SNF 4. F/u with Dr. Her upon d/c
--- NOTE | 2018-11-12 13:50 | PN ---
Progress Note, Physician - Current Medication List Current Medications: Active Medications Acetaminophen (Tylenol -) 650 mg PO Q6H PRN PRN Reason: PAIN OR FEVER Last Admin: 11/09/18 20:31 Dose: 650 mg Albuterol Sulfate (Ventolin 0.083% Nebulizer Soln -) 1 amp NEB Q6H PRN PRN Reason: SHORT OF BREATH/WHEEZING Aspirin (Asa -) 81 mg PO DAILY [facility] Last Admin: 11/12/18 10:09 Dose: 81 mg Atorvastatin Calcium (Lipitor -) 10 mg PO [facility] Last Admin: 11/11/18 21:21 Dose: 10 mg Donepezil HCl (Aricept -) 5 mg PO [facility] Last Admin: 11/11/18 21:51 Dose: 5 mg Ferrous Gluconate (Fergon -) 324 mg PO BID [facility] Last Admin: 11/12/18 11:35 Dose: 324 mg Heparin Sodium (Porcine) (Heparin -) 5,000 unit SQ BID [facility] Last Admin: 11/12/18 10:09 Dose: 5,000 unit Ceftriaxone Sodium 1 gm/ (Dextrose) 50 mls @ 100 mls/hr IVPB [facility]; Protocol Last Admin: 11/11/18 21:21 Dose: 100 mls/hr Metoprolol Succinate (Toprol Xl -) 25 mg PO [facility] Last Admin: 11/11/18 21:21 Dose: 25 mg Mirtazapine (Remeron -) 7.5 mg PO [facility] Last Admin: 11/12/18 07:37 Dose: Not Given Multivitamins/Minerals/Vitamin C (Tab-A-Vit -) 1 tab PO DAILY [facility] Last Admin: 11/12/18 10:09 Dose: 1 tab Sacubitril/Valsartan (Entresto 24 Mg-26 Mg Tablet) 1 tab PO BID [facility] Last Admin: 11/12/18 11:34 Dose: 1 tab Solifenacin (Vesicare -) 5 mg PO DAILY [facility] Last Admin: 11/12/18 11:34 Dose: 5 mg - Objective Vital Signs: Vital Signs Temperature 98.8 F 11/12/18 10:00 Pulse Rate 74 11/12/18 10:00 Respiratory Rate 20 11/12/18 10:00 Blood Pressure 122/51 L 11/12/18 10:00 O2 Sat by Pulse Oximetry (%) 95 11/12/18 09:00 Labs: CBC, BMP 11/10/18 06:30 11/12/18 06:30 INR, PTT INR 1.09 (0.83-1.09) 11/08/18 21:09
[2018-11-12 14:03] VITALS: BP 124/54; PULSE 70; TEMP 97.5
== END 2018-11-12 17:10 | disposition home or self-care (01) | DRG 689 ==
LOC: SUPCPDRO 18:39 → JER 18:39 → JERBED 11-09 01:31 → J7W 11-09 23:07
PROVIDERS: ADMIT Internal Medicine; ATTEND Internal Medicine
DX: N39.0 Urinary tract infection, site not specified (principal); G92 Toxic encephalopathy; N17.9 Acute kidney failure, unspecified; J98.11 Atelectasis; I25.810 Atherosclerosis of coronary artery bypass graft(s) without angina pectoris; B96.1 Klebsiella pneumoniae [K. pneumoniae] as the cause of diseases classified elsewhere; S79.811A Other specified injuries of right hip, initial encounter; W01.0XXA Fall on same level from slipping, tripping and stumbling without subsequent striking against object, initial encounter; Y93.01 Activity, walking, marching and hiking; Y92.018 Other place in single-family (private) house as the place of occurrence of the external cause; Y99.8 Other external cause status; E11.9 Type 2 diabetes mellitus without complications; E86.0 Dehydration; E78.5 Hyperlipidemia, unspecified; Z95.1 Presence of aortocoronary bypass graft; I11.0 Hypertensive heart disease with heart failure; I50.9 Heart failure, unspecified; Z90.710 Acquired absence of both cervix and uterus; Z87.891 Personal history of nicotine dependence; E66.9 Obesity, unspecified; Z68.30 Body mass index [BMI] 30.0-30.9, adult; I70.0 Atherosclerosis of aorta; R53.1 Weakness
CPT/HCPCS: 36415; 70450-TC; 71045-TC-FY; 72125-TC; 73523-TC-FY; 74176-TC; 80048; 80053; 81003; 81015; 82550; 84484; 85025; 85610; 86850; 86900; 86901; 87040; 87086; 87186; 93005; 93010; 97116-GP; 99284-25; J1644; J7030; Q9967

== ENCOUNTER 2019-11-10 17:57 | Inpatient (IN) | payer OTHER, BC ==
--- NOTE | 2019-11-10 18:42 | PDOC ---
History of Present Illness - General Chief Complaint: Injury Stated Complaint: Injury - History of Present Illness Initial Comments: Tod Hoyos is an 84yo woman with a PMH of CAD s/p DC s/p 5v CABG, HLD, HTN, DM who presents following an unwitnessed fall at home today. She states that she was sitting at the kitchen table, stood up, and fell backwards. She reports feeling dizzy prior to the fall but denies any chest pain, difficulty breathing , focal weakness, or headache. She remembers the fall and denies LOC, but she did strike her posterior head and back on the floor. She was unable to get up secondary to pain. Ms Hoyos says that she is unsteady at baseline, but she is not sure whether she lost her balance or if the fall was due to dizziness. Past History - Past Medical History Allergies/Adverse Reactions: Allergies Allergy/AdvReac Type Severity Reaction Status Date / Time No Known Allergies Allergy Verified 11/10/19 18:21 Home Medications: Ambulatory Orders Ascorbate Calcium [Vitamin C] 1,000 mg PO BID 12/11/15 Aspirin [ASA -] 81 mg PO DAILY 12/11/15 Allopurinol [Zyloprim -] 300 mg PO DAILY #30 tablet 12/15/15 Ferrous Gluconate [Iron] 130 mg PO BID 11/01/16 Furosemide [Lasix] 40 mg PO DAILY 11/01/16 Pioglitazone HCl [Actos] 22.5 mg PO DAILY 11/01/16 Pravastatin Sodium [Pravachol -] 40 mg PO HS 11/01/16 Donepezil HCl [Aricept -] 5 mg PO HS tablet 11/12/18 Heparin - 5,000 unit SQ BID vial 11/12/18 Metoprolol Succinate [Toprol XL -] 25 mg PO HS tab.sr.24h 11/12/18 Mirtazapine [Remeron -] 7.5 mg PO HS tablet 11/12/18 Multivitamins [Multivit ([facility] Formulary)] 1 tab PO DAILY tab 11/12/18 Sacubitril/Valsartan [Entresto 24 mg-26 mg Tablet] 0.5 tab PO BID tablet Sacubitril/Valsartan [Entresto 24 mg-26 mg Tablet] 1 each PO BID 30 Days #30 tablet 11/12/18 Solifenacin Succinate [Vesicare -] 5 mg PO DAILY #30 tab 11/12/18 Anemia: No Asthma: No Cancer: No Cardiac Disorders: Yes (BYPASS X 5 1998) CVA: No COPD: No CHF: Yes Dementia: No Diabetes: Yes GI Disorders: No Disorders: No HTN: Yes (low blood pressure when she stands) Hypercholesterolemia: Yes Liver Disease: No Seizures: No Thyroid Disease: No - Surgical History Abdominal Surgery: Yes (hysterectomy) Appendectomy: No Cardiac Surgery: Yes (1998 cabg) Cholecystectomy: Yes Lung Surgery: No Neurologic Surgery: No Orthopedic Surgery: No - Psycho Social/Smoking Cessation Hx Smoking Status: No Smoking History: Unknown if ever smoked Have you smoked in the past 12 months: No Number of Cigarettes Smoked Daily: 0 If you are a former smoker, when did you quit?: 1997 Hx Alcohol Use: No Drug/Substance Use Hx: No Substance Use Type: None Hx Substance Use Treatment: No Review of Systems - Review of Systems Comments:: General: No fevers, no chills, no weight or appetite change, no malaise HEENT: No changes in vision, no changes in hearing, no congestion, no sore throat CV: No chest pain, no palpitations, no LE edema Pulm: No SOB, no cough, no wheezing GI: No nausea or vomiting, no change in bowel habits, no melena : NoSee HPI Skin: No rash, no lesions, no erythema Endo: No excessive thirst, no heat/cold intolerance Heme: No unusual bruising or bleeding, no swollen glands Neuro: No syncope, no numbness/tingling, no focal weakness Vasc: No claudication Psych: No recent change in mood, no SI or HI *Physical Exam - Vital Signs Last Vital Signs Temp Pulse Resp BP Pulse Ox 97.0 F L 93 H 16 171/81 H 100 11/10/19 18:00 11/10/19 18:00 11/10/19 18:00 11/10/19 18:00 11/10/19 18:00 - Physical Exam General: Comfortable, no acute distress HEENT: No visible trauma, PERRL, EOMI, MMM, voice normal, posterior neck tenderness Cards: RRR, no murmur appreciated Pulm: Comfortable on room air, clear to auscultation bilaterally Back: TTP over thoracic and lumbar spine, unable to localize. No visible injury , no erythema, no abrasions, no deformity Abd: Soft, nontender, nondistended Ext: Atraumatic. No LE edema. ROM intact. WWP Skin: Normal color, no rashes or lesions Neuro: A&Ox3, CN grossly intact, normal speech, motor/sensory grossly intact and symmetric Psych: Mood appropriate to situation ED Treatment Course - LABORATORY CBC & Chemistry Diagram: 11/10/19 20:20 11/10/19 20:20 Medical Decision Making - Medical Decision Making 11/10/19 18:41 Tod Hoyos is an 84yo woman with a PMH of CAD s/p DC s/p 5v CABG, HLD, HTN, DM who presents following an unwitnessed fall at home today. She states that she was sitting at the kitchen table, stood up, and fell backwards. She reports baseline unsteadiness as well as dizziness prior to the fall but denies any LOC. Ms Hoyos reports significant pain along her thoracic and lumbar spine following the fall. - Unclear whether fall was due to syncope or mechanical - EKG compelted; NSR, HR 92, normal to left axis, normal intervals, no acute ST or t-wave changes - CBC, CMP, trop, CXR - CT head, CTLS spine - 500cc IVF - Acetaminophen for pain. Pt unable to roll for exam secondary to pain 11/10/19 21:06 - CT's negative for acute injury - CXR with possible bibasilar pneumonia but does not clinically correlate 11/10/19 21:41 - Labs reviewed, unremarkable. Trop negative - Family updated. Report that pt sees Dr Her as an outpatient - [employer] sent for admission for syncope workup 11/10/19 21:54 - Pain improved but still present. Lidocaine patches ordered for back - Sign out given to NORMAN Simpson. Will admit to telemetry Discussed with Dr Giuliano Cooper PGY2 Discharge - Discharge Information Problems reviewed: Yes Clinical Impression/Diagnosis: Back pain due to injury Syncope Qualifiers: Syncope type: unspecified Qualified Code(s): R55 - Syncope and collapse Condition: Stable - Admission Yes - Follow up/Referral - Patient Discharge Instructions - Post Discharge Activity
[2019-11-10] MEDS ORDERED: SODIUM CHLORIDE 0.9% 500 ML INFUS.BAG IV ONE (19:20)
[2019-11-10] MEDS ORDERED: ACETAMINOPHEN 1000 MG/100 ML VIAL (NON FORMULARY) IVPB ONE (19:20)
--- NOTE | 2019-11-10 19:29 | PDOC ---
Attending Attestation - Resident Resident Name: Tiffanie Cooper - ED Attending Attestation I have performed the following: I have examined & evaluated the patient, The case was reviewed & discussed with the resident, I agree w/resident's findings & plan - HPI HPI: 11/10/19 22:49 see resident hpi - Physicial Exam PE: 11/10/19 22:49 agree with resident exam - Medical Decision Making 11/10/19 22:49 84-year-old female with unwitnessed fall and pain to the back CT scans of the brain and spine show no acute fracture EKG shows a sinus rhythm at 92 bpm with no acute ST elevations Chest x-ray shows upper lobe infiltrate, possibly pneumonia Patient does report some cough, there is an elevation of her white blood cell count though she is afebrile She resides at home with her We will cover for community-acquired pneumonia as well Due to patient's age and possible syncope she will be admitted for further evaluation 11/10/19 22:53
[2019-11-10] MEDS ORDERED: ACETAMINOPHEN INJECTION 100 ML IVPB ONE (20:17)
[2019-11-10 20:46] LABS: BASO % 0.5 % (0-2.0); EOS % 0.2 % (0-4.5); HEMATOCRIT 38.3 % (32.4-45.2); HEMOGLOBIN 12.6 GM/dL (10.7-15.3); LYMPH % 4.6 % (8-40); MCH 30.6 pg (25.7-33.7); MCHC 32.8 g/dl (32.0-36.0); MEAN CELL VOLUME 93.3 fl (80-96); MEAN PLT VOLUME 10.9 fl (7.5-11.1); MONO % 6.3 % (3.8-10.2); NEUT % 88.4 % (42.8-82.8); PLATELET COUNT 141 K/MM3 (134-434); RBC 4.11 M/mm3 (3.60-5.2); RDW 13.5 % (11.6-15.6)
[2019-11-10 21:17] LABS: ALBUMIN 3.8 g/dl (3.4-5.0); ALK PHOS 144 U/L (45-117); ANION GAP 7 MMOL/L (8-16); BILIRUBIN,TOTAL 0.3 mg/dL (0.2-1); BLOOD UREA NITROGEN 41.7 mg/dL (7-18); CALCIUM 8.8 mg/dL (8.5-10.1); CHLORIDE 106 mmol/L (98-107); CO2 25 mmol/L (21-32); CREATININE 1.6 mg/dL (0.55-1.3); GLUCOSE,RANDOM 154 mg/dL (74-106); POTASSIUM 5.2 mmol/L (3.5-5.1); SGOT/AST 21 U/L (15-37); SGPT/ALT 18 U/L (13-61); SODIUM 138 mmol/L (136-145); TOT PROT 6.9 g/dl (6.4-8.2)
[2019-11-10] MEDS ORDERED: LIDOCAINE 5% TOPICAL PATCH TP ONE (21:56)
[2019-11-10] MEDS ORDERED: LIDOCAINE 5% TOPICAL PATCH ONE (21:58)
[2019-11-10] MEDS ORDERED: CEFTRIAXONE 1 GM in DEXTROSE 5%-WATER - 100 ML IVPB ONE (22:55)
[2019-11-10] MEDS ORDERED: AZITHROMYCIN IVPB 500 MG in DEXTROSE 5%-WATER - 250 ML IVPB ONE (22:55)
[2019-11-10] MEDS ORDERED: CEFTRIAXONE 1 GM/50 ML BAG ONE (23:04)
[2019-11-10] MEDS ORDERED: AZITHROMYCIN IVPB 500 MG/250 ML BAG IVPB ONE (23:04)
--- NOTE | 2019-11-11 00:03 | HP ---
Admitting History and Physical - Primary Care Physician PCP: Bryce Ash - Admission Chief Complaint: Dizziness History of Present Illness: This is a 84 y/o woman with a PMH of CAD s/p [place] s/p 5v CABG, HLD, HTN, DM, last admission 11/11/18 for Weakness and Fall. Who presents to the ED following an unwitnessed fall at home today. She states that she was sitting at the kitchen table, stood up, and fell backwards. She reports feeling dizzy prior to the fall but denies any chest pain, difficulty breathing, focal weakness, or headache. She remembers the fall and denies LOC, but she did strike her posterior head and back on the floor. She was unable to get up secondary to pain. Patient reports that she is unsteady at baseline, but she is not sure whether she lost her balance or if the fall was due to dizziness. History Source: Patient Limitations to Obtaining History: No Limitations - Past Medical History Cardiovascular: Yes: CAD, HTN, Hyperlipdemia Endocrine: Yes: Diabetes Mellitus - Past Surgical History Past Surgical History: Yes: CABG (quintuple), Cholecystectomy, Hysterectomy - Smoking History Smoking history: Former smoker Have you smoked in the past 12 months: No Aproximately how many cigarettes per day: 0 If you are a former smoker, when did you quit?: 1997 - Alcohol/Substance Use Hx Alcohol Use: No History of Substance Use: reports: None - Social History Usual Living Arrangement: Yes: With Spouse ADL: Family Assistance Occupation: Retired History of Recent Travel: No Home Medications - Allergies Allergies/Adverse Reactions: Allergies Allergy/AdvReac Type Severity Reaction Status Date / Time No Known Allergies Allergy Verified 11/10/19 18:21 - Home Medications Home Medications: Ambulatory Orders Ascorbate Calcium [Vitamin C] 1,000 mg PO BID 12/11/15 Aspirin [ASA -] 81 mg PO DAILY 12/11/15 Allopurinol [Zyloprim -] 300 mg PO DAILY #30 tablet 12/15/15 Ferrous Gluconate [Iron] 130 mg PO BID 11/01/16 Furosemide [Lasix] 40 mg PO DAILY 11/01/16 Pioglitazone HCl [Actos] 22.5 mg PO DAILY 11/01/16 Pravastatin Sodium [Pravachol -] 40 mg PO HS 11/01/16 Donepezil HCl [Aricept -] 5 mg PO HS tablet 11/12/18 Heparin - 5,000 unit SQ BID vial 11/12/18 Metoprolol Succinate [Toprol XL -] 25 mg PO HS tab.sr.24h 11/12/18 Mirtazapine [Remeron -] 7.5 mg PO HS tablet 11/12/18 Multivitamins [Multivit ([facility] Formulary)] 1 tab PO DAILY tab 11/12/18 Sacubitril/Valsartan [Entresto 24 mg-26 mg Tablet] 0.5 tab PO BID tablet Sacubitril/Valsartan [Entresto 24 mg-26 mg Tablet] 1 each PO BID 30 Days #30 tablet 11/12/18 Solifenacin Succinate [Vesicare -] 5 mg PO DAILY #30 tab 11/12/18 Family Medical History Family Hx Cardiac Disorders: Brother Review of Systems - Review of Systems Constitutional: reports: No Symptoms Eyes: reports: No Symptoms HENT: reports: No Symptoms Neck: reports: No Symptoms Cardiovascular: reports: No Symptoms Respiratory: reports: No Symptoms Gastrointestinal: reports: No Symptoms Genitourinary: reports: No Symptoms Breasts: reports: No Symptoms Reported Musculoskeletal: reports: Back Pain Integumentary: reports: No Symptoms Neurological: reports: Dizziness Endocrine: reports: No Symptoms Hematology/Lymphatic: reports: No Symptoms Psychiatric: reports: No Symptoms Pain Intensity: 6 Physical Examination Vital Signs: Vital Signs Temperature 98.4 F 11/10/19 23:56 Pulse Rate 86 11/10/19 23:56 Respiratory Rate 18 11/10/19 23:56 Blood Pressure 128/61 11/10/19 23:56 O2 Sat by Pulse Oximetry (%) 98 11/10/19 23:56 Constitutional: Yes: Mild Distress, Obese Eyes: Yes: WNL, Conjunctiva Clear, EOM Intact, PERRL HENT: Yes: WNL, Atraumatic, Normocephalic Neck: Yes: WNL, Supple, Trachea Midline Cardiovascular: Yes: Regular Rate and Rhythm, Murmur, S1, S2 Respiratory: Yes: WNL, Regular, CTA Bilaterally Gastrointestinal: Yes: Normal Bowel Sounds, Soft, Abdomen, Obese, Tenderness ...Rectal Exam: Yes: Deferred Renal/: Yes: Incontinence Breast(s): Yes: WNL Musculoskeletal: Yes: Back Pain Extremities: Yes: WNL Edema: No Peripheral Pulses WNL: Yes Neurological: Yes: WNL, Alert, Oriented, Cran Nerves II-XII Intact ...Motor Strength: WNL Psychiatric: Yes: WNL, Alert, Oriented Labs: CBC, BMP 11/10/19 20:20 11/10/19 20:20 Laboratory Results - last 24 hr 11/10/19 11/10/19 11/11/19 20:20 20:20 01:00 WBC 15.0 H RBC 4.11 Hgb 12.6 Hct 38.3 MCV 93.3 MCH 30.6 MCHC 32.8 RDW 13.5 Plt Count 141 MPV 10.9 Absolute Neuts (auto) 13.2 H Neutrophils % 88.4 H Lymphocytes % 4.6 L D Monocytes % 6.3 Eosinophils % 0.2 D Basophils % 0.5 Nucleated RBC % 0 Sodium 138 Potassium 5.2 H Chloride 106 Carbon Dioxide 25 Anion Gap 7 L BUN 41.7 H Creatinine 1.6 H Est GFR (CKD-EPI)AfAm 33.94 Est GFR (CKD-EPI)NonAf 29.29 Random Glucose 154 H Calcium 8.8 Total Bilirubin 0.3 AST 21 ALT 18 Alkaline Phosphatase 144 H Creatine Kinase 67 Troponin I < 0.02 Total Protein 6.9 Albumin 3.8 Urine Color Yellow Urine Appearance Clear Urine pH 5.0 Ur Specific [place] 1.014 Urine Protein Negative Urine Glucose (UA) Negative Urine Ketones Negative Urine Blood Negative Urine Nitrite Negative Urine Bilirubin Negative Urine Urobilinogen 0.2 Ur Leukocyte Esterase Negative 11/11/19 02:00 WBC RBC Hgb Hct MCV MCH MCHC RDW Plt Count MPV Absolute Neuts (auto) Neutrophils % Lymphocytes % Monocytes % Eosinophils % Basophils % Nucleated RBC % Sodium Potassium Chloride Carbon Dioxide Anion Gap BUN Creatinine Est GFR (CKD-EPI)AfAm Est GFR (CKD-EPI)NonAf Random Glucose Calcium Total Bilirubin AST ALT Alkaline Phosphatase Creatine Kinase Troponin I 0.03 Total Protein Albumin Urine Color Urine Appearance Urine pH Ur Specific [place] Urine Protein Urine Glucose (UA) Urine Ketones Urine Blood Urine Nitrite Urine Bilirubin Urine Urobilinogen Ur Leukocyte Esterase Intake & Output 11/08/19 11/09/19 11/10/19 11/11/19 23:59 23:59 23:59 23:59 Output Total 200 Balance -200 Weight 54.431 kg 79.5 kg Current Medications Generic Name Dose Route Start Last Admin Trade Name Freq PRN Reason Stop Dose Admin Aspirin 81 mg 11/11/19 10:00 Asa - PO DAILY [facility] Donepezil HCl 5 mg 11/11/19 22:00 Aricept - PO HS [facility] Furosemide 40 mg 11/11/19 10:00 Lasix - PO DAILY [facility] Heparin Sodium (Porcine) 5,000 unit 11/11/19 10:00 Heparin - SQ BID [facility] Metoprolol Succinate 25 mg 11/11/19 22:00 Toprol Xl - PO HS [facility] Mirtazapine 7.5 mg 11/11/19 22:00 Remeron - PO HS [facility] Morphine Sulfate 1 mg 11/11/19 03:28 11/11/19 03:42 Morphine Injection - IVPUSH 11/11/19 03:29 1 mg ONCE ONE Administration Multivitamins/Minerals/Vitamin C 1 tab 11/11/19 10:00 Tab-A-Vit - PO DAILY [facility] Non-Formulary Medication 40 mg 11/11/19 22:00 Pravastatin Sodium PO HS [facility] Ondansetron HCl 4 mg 11/11/19 03:32 11/11/19 03:42 Zofran Injection IVPUSH 11/11/19 03:33 4 mg ONCE ONE Administration Sacubitril/Valsartan 1 tab 11/11/19 10:00 Entresto 24 Mg-26 Mg Tablet PO BID [facility] Imaging - Results Chest X-ray: Report Reviewed, Image Reviewed Cat Scan: Report Reviewed, Image Reviewed EKG: Image Reviewed Problem List - Problems (1) Syncope Code(s): R55 - SYNCOPE AND COLLAPSE Qualifiers: Syncope type: unspecified Qualified Code(s): R55 - Syncope and collapse (2) Fall Code(s): W19.XXXA - UNSPECIFIED FALL, INITIAL ENCOUNTER Qualifiers: Encounter type: initial encounter Qualified Code(s): W19.XXXA - Unspecified fall, initial encounter (3) Pneumonia Code(s): J18.9 - PNEUMONIA, UNSPECIFIED ORGANISM (4) CAD (coronary artery disease) of artery bypass graft Code(s): I25.810 - ATHEROSCLEROSIS OF CABG W/O ANGINA PECTORIS Qualifiers: [place] vs. transplanted heart: [place] heart Associated angina: without angina Qualified Code(s): I25.810 - Atherosclerosis of coronary artery bypass graft(s) without angina pectoris (5) HLD (hyperlipidemia) Code(s): E78.5 - HYPERLIPIDEMIA, UNSPECIFIED Qualifiers: Hyperlipidemia type: pure hypercholesterolemia Qualified Code(s): E78.00 - Pure hypercholesterolemia, unspecified; E78.0 - Pure hypercholesterolemia (6) HTN (hypertension) Code(s): I10 - ESSENTIAL (PRIMARY) HYPERTENSION Qualifiers: Hypertension type: renovascular hypertension Qualified Code(s): I15.0 - Renovascular hypertension (7) Type 2 diabetes mellitus Code(s): E11.9 - TYPE 2 DIABETES MELLITUS WITHOUT COMPLICATIONS Qualifiers: Diabetes mellitus [facility] insulin use: without manager intermediate use Assessment/Plan This is a 84 y/o woman with a PMH of CAD s/p [place] s/p 5v CABG, HLD, HTN, DM, last admission 11/11/18 for Weakness and Fall. Admitted to Telemetry for Pre-Syncope, Pneumonia, s/p Fall, unable to ambulate for further evaluation of their emergent condition. Plan: # Pre-Syncope s/p CABG HTN HLD Likely secondary to arrhythmia Continue cardiac monitoring Serial Enzymes Appreciate Cardiology consult Head CT- no ICH Chest Xray- increased interstitial markings bilaterally, ?pneumonia EKG- reviewed Echo in am Carotid Doppler in am Monitor CBC, BMP Continue home meds with parameters Fall Precautions # Pneumonia CURB65- 3 WBC 15 with L- shift Blood Cultures-pending Urine Culture-pending Urine Legionella-pending Chest Xray- increased interstitial markings bilaterally, ?pneumonia Azithromycin, Ceftriaxone given in ED, will continue for CAP Consider ID consult if no improvement Monitor CBC, BMP Monitor vitals O2, prn # s/p Fall, Unable to Ambulate Mechanical Fall vs Arrhythmia Hx frequent falls- obtained from medical records Head CT report- neg ICH C-spine Xray report- no fx Lumbar CT report- multilevel healed rib fxs seen, no acute fx Consider Ortho consult PT eval Fall Precautions Lidocaine Patch, Tylenol prn [employer] Grader consult- STR vs SNF placement Monitor vitals Monitor CBC, BMP # CARO Cr 1.6 Appreciate Nephrology consult Avoid Nephrotoxic Drugs Monitor BP # Diabetes Mellitus Stable BGMs ISS FEN Replete lytes prn Low Na, Diabetic Diet DVT ppx OOB SCDs Heparin SQ Dispo: Requires Inpatient Care Visit type - Emergency Visit Emergency Visit: Yes ED Registration Date: 11/10/19 Care time: The patient presented to the Emergency Department on the above date and was hospitalized for further evaluation of their emergent condition. - New Patient This patient is new to me today: Yes Date on this admission: 11/10/19 - Critical Care Critical Care patient: No
[2019-11-11] MEDS ORDERED: traMADol HCL 50 MG TABLET PO ONE (00:30)
[2019-11-11 01:18] LABS: URINE APPEARANCE CLEAR; URINE BILIRUBIN NEGATIVE (NEGATIVE); URINE COLOR YELLOW; URINE GLUCOSE (UA) NEGATIVE (NEGATIVE); URINE KETONE NEGATIVE (NEGATIVE); URINE LEUK ESTERASE NEGATIVE (NEGATIVE); URINE NITRITE NEGATIVE (NEGATIVE); URINE PROTEIN NEGATIVE (NEGATIVE); URINE UROBILINOGEN 0.2 mg/dL (0.2-1.0)
[2019-11-11] MEDS ORDERED: morphine CARPU-JECT 2 MG/1 ML DISP.SYRIN IVPUSH ONE (03:28)
[2019-11-11] MEDS ORDERED: MORPHINE SULFATE 2 MG/ML VIAL IVPUSH ONE (03:28)
[2019-11-11] MEDS ORDERED: ONDANSETRON 4 MG/2 ML VIAL IVPUSH ONE (03:32)
[2019-11-11] MEDS ORDERED: MORPHINE SULFATE 2 MG/ML VIAL ONE (03:37)
[2019-11-11 06:58] LABS: BASO % 0.4 % (0-2.0); EOS % 0.4 % (0-4.5); LYMPH % 6.7 % (8-40); MCHC 33.4 g/dl (32.0-36.0); MEAN PLT VOLUME 10.9 fl (7.5-11.1); MONO % 5.7 % (3.8-10.2); NEUT % 86.8 % (42.8-82.8); PLATELET COUNT 135 K/MM3 (134-434); RBC 3.54 M/mm3 (3.60-5.2); RDW 13.3 % (11.6-15.6); WHITE BLOOD COUNT 8.6 K/mm3 (4.0-10.0)
[2019-11-11 08:03] LABS: BLOOD UREA NITROGEN 40.3 mg/dL (7-18); CALCIUM 8.5 mg/dL (8.5-10.1); CREATININE 1.6 mg/dL (0.55-1.3); MAGNESIUM 2.6 mg/dL (1.8-2.4); PHOSPHOROUS 4.7 mg/dL (2.5-4.9); POTASSIUM 5.8 mmol/L (3.5-5.1)
--- NOTE | 2019-11-11 10:29 | CON.CARD ---
Consult Consult Specialty:: Cardiology Referred by:: Hospitalist Medicine Reason for Consultation:: Dizziness, h/o CABG - History of Present Illness Chief Complaint: Dizziness History of Present Illness: This is a 84 y/o woman with a h/o CAD s/p CABGx5, HTN, HLD, DM, systolic dysfunction last admission 11/11/18 for weakness and fall who presents to the ED following an unwitnessed fall at home today. She states that she was sitting at the kitchen table, stood up, and fell backwards. She reports feeling dizzy prior to the fall but denies any chest pain, difficulty breathing, focal weakness, or headache. She remembers the fall and denies LOC, but she did strike her posterior head and back on the floor. She was unable to get up secondary to pain. Patient reports that she is unsteady at baseline, but she is not sure whether she lost her balance or if the fall was due to dizziness.who presents to the ED , she states she ambulates with a walker but does not have the strength to stand by herself. Patient reports having chronic dyspnea uses 2L and sleeps with 3 pillows at home- unchanged. Patient denies fever, dizziness, CP, palpitations, true syncope, orthopnea, PND or LE edema. - History Source History Provided By: Medical Record Limitations to Obtaining History: Clinical Condition - Past Medical History Cardio/Vascular: Yes: CAD, HTN, Hyperlipdemia Endocrine: Yes: Diabetes Mellitus - Past Surgical History Past Surgical History: Yes: CABG (quintuple), Cholecystectomy, Hysterectomy - Alcohol/Substance Use Hx Alcohol Use: No History of Substance Use: reports: None - Smoking History Smoking history: Former smoker Have you smoked in the past 12 months: No Aproximately how many cigarettes per day: 0 If you are a former smoker, when did you quit?: 1997 - Social History ADL: Family Assistance Occupation: Retired History of Recent Travel: No Home Medications - Allergies Allergies/Adverse Reactions: Allergies Allergy/AdvReac Type Severity Reaction Status Date / Time No Known Allergies Allergy Verified 11/10/19 18:21 - Home Medications Home Medications: Ambulatory Orders Ascorbate Calcium [Vitamin C] 1,000 mg PO BID 12/11/15 Aspirin [ASA -] 81 mg PO DAILY 12/11/15 Allopurinol [Zyloprim -] 300 mg PO DAILY #30 tablet 12/15/15 Ferrous Gluconate [Iron] 130 mg PO BID 11/01/16 Furosemide [Lasix] 40 mg PO DAILY 11/01/16 Pioglitazone HCl [Actos] 22.5 mg PO DAILY 11/01/16 Pravastatin Sodium [Pravachol -] 40 mg PO HS 11/01/16 Donepezil HCl [Aricept -] 5 mg PO HS tablet 11/12/18 Heparin - 5,000 unit SQ BID vial 11/12/18 Metoprolol Succinate [Toprol XL -] 25 mg PO HS tab.sr.24h 11/12/18 Mirtazapine [Remeron -] 7.5 mg PO HS tablet 11/12/18 Multivitamins [Multivit ([facility] Formul[facility])] 1 tab PO DAILY tab 11/12/18 Sacubitril/Valsartan [Entresto 24 mg-26 mg Tablet] 0.5 tab PO BID tablet Sacubitril/Valsartan [Entresto 24 mg-26 mg Tablet] 1 each PO BID 30 Days #30 tablet 11/12/18 Solifenacin Succinate [Vesicare -] 5 mg PO DAILY #30 tab 11/12/18 Review of Systems - Review of Systems Neurological: reports: Dizziness, Unsteady Gait Vital Signs: Vital Signs Temperature 98.4 F 11/10/19 23:56 Pulse Rate 94 H 11/11/19 09:55 Respiratory Rate 20 11/11/19 09:55 Blood Pressure 144/75 11/11/19 09:55 O2 Sat by Pulse Oximetry (%) 97 11/11/19 09:55 Constitutional: Yes: No Distress, Calm Neck: Yes: Supple Respiratory: Yes: Regular, Diminished, On Nasal O2 Gastrointestinal: Yes: Normal Bowel Sounds, Soft Cardiovascular: Yes: Regular Rate and Rhythm JVD: No Carotid Bruit: No Heart Sounds: Yes: S1, S2 Murmur: Yes: Systolic Murmur, Grade 1 Edema: Yes Edema: LLE: Trace, RLE: Trace - Other Data Labs, Other Data: CBC, BMP 11/11/19 05:20 11/11/19 05:20 Troponin, BNP 11/10/19 11/11/19 11/11/19 20:20 02:00 05:20 Troponin I < 0.02 0.03 0.04 Troponin, BNP 11/10/19 11/11/19 11/11/19 20:20 02:00 05:20 Troponin I < 0.02 0.03 0.04 NSR @ 92 PRWP lateral T wave changes Ejection Fraction %: LVEF < 40 % Imaging - Results Chest X-ray: Report Reviewed (Mild increase interstitial markings) Problem List - Problems (1) CKD (chronic kidney disease) Code(s): N18.9 - CHRONIC KIDNEY DISEASE, UNSPECIFIED Qualifiers: Chronic kidney disease stage: stage 3 (moderate) Qualified Code(s): N18.3 - Chronic kidney disease, stage 3 (moderate) (2) Ischemic cardiomyopathy Code(s): I25.5 - ISCHEMIC CARDIOMYOPATHY (3) Systolic dysfunction, left ventricle Code(s): I51.9 - HEART DISEASE, UNSPECIFIED (4) Back pain due to injury Code(s): S39.92XA - UNSPECIFIED INJURY OF LOWER BACK, INITIAL ENCOUNTER (5) CAD (coronary artery disease) of artery bypass graft Code(s): I25.810 - ATHEROSCLEROSIS OF CABG W/O ANGINA PECTORIS Qualifiers: [place] vs. transplanted heart: [place] heart Associated angina: without angina Qualified Code(s): I25.810 - Atherosclerosis of coronary artery bypass graft(s) without angina pectoris (6) Fall Code(s): W19.XXXA - UNSPECIFIED FALL, INITIAL ENCOUNTER Qualifiers: Encounter type: initial encounter Qualified Code(s): W19.XXXA - Unspecified fall, initial encounter (7) HLD (hyperlipidemia) Code(s): E78.5 - HYPERLIPIDEMIA, UNSPECIFIED Qualifiers: Hyperlipidemia type: pure hypercholesterolemia Qualified Code(s): E78.00 - Pure hypercholesterolemia, unspecified; E78.0 - Pure hypercholesterolemia (8) HTN (hypertension) Code(s): I10 - ESSENTIAL (PRIMARY) HYPERTENSION Qualifiers: Hypertension type: renovascular hypertension Qualified Code(s): I15.0 - Renovascular hypertension (9) Type 2 diabetes mellitus Code(s): E11.9 - TYPE 2 DIABETES MELLITUS WITHOUT COMPLICATIONS Qualifiers: Diabetes mellitus jail insulin use: without middle or intermediate school principal use (10) Hyperkalemia Code(s): E87.5 - HYPERKALEMIA Assessment/Plan 11/11/2019 Severe decreased LVEF 25-30%, normal RV fxn, mild MR, TR RVSP 30-40 mmHg, mild AR, , tr [place] 04/03/2018 Moderate-severe decreased LVEF 30-35%, impaired LV relaxation, mod LAE, normal RV size and fxn, mild FERNANDO 1.0 cm^2, mild-mod MR, RVSP 45 mm Hg 01/17/2017 Lexiscan Myoview: moderate size distal anterior, anterolateral scar 1. Near syncope 2. CKD with hyperkalemia 3. CAD s/p [place], CABG 4. LV systolic dysfunction, severe ischemic cardiomyopathy 5. Type 2 DM 6. Hyperlipidemia 7. Hypertensive heart disease 8. Asymptomatic mod-severe carotid stenosis P: 1. Continue ASA 81 qd, Toprol XL 25 qd, Pravachol 40 qd, Entresto 24/26 bid, Lasix 40 qd with monitor Cr and K 2. Consideration for ICD implantation as outpatient, telemetry monitoring 3. PT and gait training 4. F/u with Dr. Her upon d/c 5. Thank you for consultative opportunity
--- NOTE | 2019-11-11 12:05 | PN ---
Progress Note (short form) - Note Progress Note: events noted Patient examined in the ER Brother at bedside Has difficulty ambulating Denies mechanical fall prior to this, she had coughing episodes Complaint of back pain Selected Entries 11/11/19 13:15 Temperature 97.9 F Pulse Rate 92 H Respiratory 20 Rate Blood Pressure 160/72 Weight 172 lb Laboratory Tests 11/11/19 11/11/19 05:20 05:20 WBC 8.6 Hgb 11.0 Hct 33.0 MCV 93.0 MCH 31.0 MCHC 33.4 RDW 13.3 Plt Count 135 Sodium 138 Potassium 5.8 H Chloride 107 Anion Gap 4 L BUN 40.3 H Random Glucose 155 H Calcium 8.5 Phosphorus 4.7 Magnesium 2.6 H Troponin I 0.04 Triglycerides 71 Cholesterol 157 Total LDL Cholesterol 65 HDL Cholesterol 74 H TSH 2.17 S1, S2, regular Decreased breath sounds Soft, obese, nontender Trace edema plan near syncope --Check echo --Check carotid Doppler --Check orthostasis --Cardiology evaluation --Telemetry --CT scan was reviewed Questionable pneumonia --Afebrile, normal O2 sat --Received IV antibiotics in the ER --Continue ceftriaxone for now --Repeat chest x-ray in the morning hyperkalemia --Kayexalate May need short-term rehabilitation Physical therapy Problem List - Problems (1) Back pain due to injury Code(s): S39.92XA - UNSPECIFIED INJURY OF LOWER BACK, INITIAL ENCOUNTER (2) CKD (chronic kidney disease) Code(s): N18.9 - CHRONIC KIDNEY DISEASE, UNSPECIFIED Qualifiers: Chronic kidney disease stage: stage 3 (moderate) Qualified Code(s): N18.3 - Chronic kidney disease, stage 3 (moderate) (3) Hyperkalemia Code(s): E87.5 - HYPERKALEMIA (4) Ischemic cardiomyopathy Code(s): I25.5 - ISCHEMIC CARDIOMYOPATHY (5) Pneumonia Code(s): J18.9 - PNEUMONIA, UNSPECIFIED ORGANISM (6) Syncope Code(s): R55 - SYNCOPE AND COLLAPSE Qualifiers: Syncope type: unspecified Qualified Code(s): R55 - Syncope and collapse (7) Systolic dysfunction, left ventricle Code(s): I51.9 - HEART DISEASE, UNSPECIFIED
[2019-11-11] MEDS: FUROSEMIDE 40 MG TABLET (FP) PO SCH (12:20)
[2019-11-11] MEDS: SACUBITRIL/VALSARTAN 24 MG-26 MG TABLET PO SCH ×2 (12:20→21:08)
[2019-11-11] MEDS: ASPIRIN 81 MG CHEWABLE TABLETS PO SCH (12:20)
[2019-11-11] MEDS: MULTIVITAMINS (DAILY MVI) TABLET (FP) PO SCH (12:20)
[2019-11-11] MEDS: HEPARIN NA (PORCINE) 5,000 UNITS/ML 1ML VIAL SQ SCH ×2 (12:20→21:06)
--- NOTE | 2019-11-11 12:27 | ECHO ---
Name: TIN DUNHAM Exam:Adult Echocardiogram Study Date: 11/11/2019 08:49 AM Age: 84 yrs Height: 60 in Weight: 120 lb BSA: 1.5 m2 MMode/2D Measurements & Calculations RVDd: 3.0 cm Ao root diam: 3.0 cm IVSd: 0.87 cm LA dimension: 3.7 cm LVIDd: 5.3 cm ACS: 1.4 cm LVIDs: 4.5 cm LVPWd: 0.78 cm EDV(Teich): 137.5 ml EPSS: 2.4 cm ESV(Teich): 92.4 ml LVOT diam: 2.0 cm LVLd ap4: 8.3 cm EDV(MOD-sp4): 135.0 ml LVLs ap4: 7.4 cm ESV(MOD-sp4): 88.0 ml SV(MOD-sp4): 47.0 ml TAPSE: 2.3 cm RV S Isai: 12.0 cm/sec Doppler Measurements & Calculations MV E max isai: 145.5 cm/sec Ao V2 max: 232.2 cm/sec MV A max isai: 91.9 cm/sec Ao max P.6 mmHg MV E/A: 1.6 Ao V2 mean: 163.7 cm/sec MV dec time: 0.17 sec Ao mean P.0 mmHg Ao V2 VTI: 55.9 cm FERNANDO(V,D): 1.1 cm2 LV V1 max P.8 mmHg TR max isai: 310.2 cm/sec LV V1 max: 84.3 cm/sec TR max P.2 mmHg RVSP(TR): 42.2 mmHg PA V2 max: 90.9 cm/sec PI end-d isai: 88.2 cm/sec PA max P.3 mmHg PA acc slope: 536.0 cm/sec2 PA acc time: 0.12 sec Med Peak E' Isai: 4.3 cm/sec RAP systole: 3.0 mmHg Med E/e': 33.9 Lat Peak E' Isai: 10.5 cm/sec Lat E/e': 13.8 PA pr(Accel): 25.1 mmHg Pulm Sys Isai: 71.1 cm/sec Procedure A complete two-dimensional transthoracic echocardiogram was performed (2D, M-mode, Doppler and color flow Doppler). Left Ventricle The left ventricle is normal in size. Left ventricular systolic function is severely reduced. Ejectio n Fraction = 25-30%. There is severe global hypokinesis of the left ventricle. Right Ventricle The right ventricle is normal in size and function. Atria Normal left and right atrial size and function. Mitral Valve There is mild mitral regurgitation. Tricuspid Valve There is mild tricuspid regurgitation. Right ventricular systolic pressure is elevated at 30-40mmHg. Aortic Valve Mild valvular aortic stenosis. Mild aortic regurgitation. Pulmonic Valve Trace pulmonic valvular regurgitation. Great Vessels The aortic root is normal size. Pericardium/Pleura There is no pericardial effusion. Interpretation Summary Left ventricular systolic function is severely reduced. There is severe global hypokinesis of the left ventricle. The right ventricle is normal in size and function. There is mild mitral regurgitation. There is mild tricuspid regurgitation. Right ventricular systolic pressure is elevated at 30-40mmHg. Mild aortic regurgitation. Mild valvular aortic stenosis. Trace pulmonic valvular regurgitation. MD Tom Alvarado 11/11/2019 12:27 PM
[2019-11-11] MEDS: traMADol HCL 50 MG TABLET PO PRN ×2 (13:10→21:07)
[2019-11-11 13:37] VITALS: BMI 29.5
--- NOTE | 2019-11-11 15:11 | EKG ---
Test Reason : Blood Pressure : / mmHG Vent. Rate : 092 BPM Atrial Rate : 092 BPM P-R Int : 174 ms QRS Dur : 094 ms QT Int : 374 ms P-R-T Axes : 078 -05 097 degrees QTc Int : 462 ms NORMAL SINUS RHYTHM ANTERIOR INFARCT , AGE UNDETERMINED T WAVE ABNORMALITY, CONSIDER LATERAL ISCHEMIA ABNORMAL ECG WHEN COMPARED WITH ECG OF 09-NOV-2018 06:09, T WAVE INVERSION NO LONGER EVIDENT IN ANTERIOR LEADS Confirmed by STEVIE GEORGES MD ([id number]) on 11/11/2019 3:11:26 PM Referred By: Confirmed By:STEVIE GEORGES MD
[2019-11-11] MEDS: ATORVASTATIN CA 10 MG TABLET (FP) PO SCH (21:06)
[2019-11-11] MEDS: metoPROLOL SUCCINATE 25 MG TAB.SR.24H (FP) PO SCH (21:06)
[2019-11-11] MEDS: DONEPEZIL HCL 5 MG TABLET (FP) PO SCH (21:06)
[2019-11-11] MEDS: MIRTAZAPINE 15 MG TABLET (FP) PO SCH (21:06)
[2019-11-12] MEDS: HEPARIN NA (PORCINE) 5,000 UNITS/ML 1ML VIAL SQ SCH ×2 (09:47→21:00)
[2019-11-12] MEDS: ASPIRIN 81 MG CHEWABLE TABLETS PO SCH (09:47)
[2019-11-12] MEDS: MULTIVITAMINS (DAILY MVI) TABLET (FP) PO SCH (09:47)
[2019-11-12] MEDS: SACUBITRIL/VALSARTAN 24 MG-26 MG TABLET PO SCH ×2 (09:47→21:00)
[2019-11-12] MEDS: FUROSEMIDE 40 MG TABLET (FP) PO SCH (09:47)
--- NOTE | 2019-11-12 10:36 | PN ---
Progress Note, Physician History of Present Illness: Denies recurrent near or true syncope, has not arisen out of bed yet. - Current Medication List Current Medications: Active Medications Aspirin (Asa -) 81 mg PO DAILY [facility] Last Admin: 11/12/19 09:47 Dose: 81 mg Atorvastatin Calcium (Lipitor -) 10 mg PO [facility] Last Admin: 11/11/19 21:06 Dose: 10 mg Donepezil HCl (Aricept -) 5 mg PO [facility] Last Admin: 11/11/19 21:06 Dose: 5 mg Furosemide (Lasix -) 40 mg PO DAILY [facility] Last Admin: 11/12/19 09:47 Dose: 40 mg Heparin Sodium (Porcine) (Heparin -) 5,000 unit SQ BID [facility] Last Admin: 11/12/19 09:47 Dose: 5,000 unit Ceftriaxone Sodium 1 gm/ (Dextrose) 50 mls @ 100 mls/hr IVPB DAILY [facility] Lidocaine (Lidoderm Patch -) 1 patch TP DAILY [facility] Metoprolol Succinate (Toprol Xl -) 25 mg PO [facility] Last Admin: 11/11/19 21:06 Dose: 25 mg Mirtazapine (Remeron -) 7.5 mg PO [facility] Last Admin: 11/11/19 21:06 Dose: 7.5 mg Miscellaneous (Lidoderm Patch Removal) 1 each MC DAILY@2200 [facility] Multivitamins/Minerals/Vitamin C (Tab-A-Vit -) 1 tab PO DAILY [facility] Last Admin: 11/12/19 09:47 Dose: 1 tab Sacubitril/Valsartan (Entresto 24 Mg-26 Mg Tablet) 1 tab PO BID [facility] Last Admin: 11/12/19 09:47 Dose: 1 tab Tramadol HCl (Ultram -) 50 mg PO Q6H PRN PRN Reason: PAIN LEVEL 7 - 10 Last Admin: 11/11/19 21:07 Dose: 50 mg - Objective Vital Signs: Vital Signs Temperature 98.1 F 11/12/19 02:00 Pulse Rate 80 11/12/19 02:00 Respiratory Rate 20 11/12/19 02:00 Blood Pressure 146/63 11/12/19 05:53 O2 Sat by Pulse Oximetry (%) 95 11/11/19 13:15 Constitutional: Yes: No Distress, Calm Neck: Yes: Supple Cardiovascular: Yes: Regular Rate and Rhythm Respiratory: Yes: Regular, CTA Bilaterally, On Nasal O2 Gastrointestinal: Yes: Normal Bowel Sounds, Soft Edema: No Labs: CBC, BMP 11/11/19 05:20 11/11/19 05:20 - ....Imaging EKG: Report Reviewed (Tele: NSR) Problem List - Problems (1) CKD (chronic kidney disease) Code(s): N18.9 - CHRONIC KIDNEY DISEASE, UNSPECIFIED Qualifiers: Chronic kidney disease stage: stage 3 (moderate) Qualified Code(s): N18.3 - Chronic kidney disease, stage 3 (moderate) (2) Ischemic cardiomyopathy Code(s): I25.5 - ISCHEMIC CARDIOMYOPATHY (3) Systolic dysfunction, left ventricle Code(s): I51.9 - HEART DISEASE, UNSPECIFIED (4) Back pain due to injury Code(s): S39.92XA - UNSPECIFIED INJURY OF LOWER BACK, INITIAL ENCOUNTER (5) CAD (coronary artery disease) of artery bypass graft Code(s): I25.810 - ATHEROSCLEROSIS OF CABG W/O ANGINA PECTORIS Qualifiers: [place] vs. transplanted heart: [place] heart Associated angina: without angina Qualified Code(s): I25.810 - Atherosclerosis of coronary artery bypass graft(s) without angina pectoris (6) Fall Code(s): W19.XXXA - UNSPECIFIED FALL, INITIAL ENCOUNTER Qualifiers: Encounter type: initial encounter Qualified Code(s): W19.XXXA - Unspecified fall, initial encounter (7) HLD (hyperlipidemia) Code(s): E78.5 - HYPERLIPIDEMIA, UNSPECIFIED Qualifiers: Hyperlipidemia type: pure hypercholesterolemia Qualified Code(s): E78.00 - Pure hypercholesterolemia, unspecified; E78.0 - Pure hypercholesterolemia (8) HTN (hypertension) Code(s): I10 - ESSENTIAL (PRIMARY) HYPERTENSION Qualifiers: Hypertension type: renovascular hypertension Qualified Code(s): I15.0 - Renovascular hypertension (9) Type 2 diabetes mellitus Code(s): E11.9 - TYPE 2 DIABETES MELLITUS WITHOUT COMPLICATIONS Qualifiers: Diabetes mellitus roasterman insulin use: without chcf use (10) Hyperkalemia Code(s): E87.5 - HYPERKALEMIA Assessment/Plan 11/11/2019 Severe decreased LVEF 25-30%, normal RV fxn, mild MR, TR RVSP 30-40 mmHg, mild [place], , tr [place] 04/03/2018 Moderate-severe decreased LVEF 30-35%, impaired LV relaxation, mod LAE, normal RV size and fxn, mild FERNANDO 1.0 cm^2, mild-mod MR, RVSP 45 mm Hg 01/17/2017 Lexiscan Myoview: moderate size distal anterior, anterolateral scar 1. Near syncope post-fall 2. CKD with hyperkalemia 3. CAD s/p [place], CABG 4. LV systolic dysfunction, severe ischemic cardiomyopathy 5. Type 2 DM 6. Hyperlipidemia 7. Hypertensive heart disease 8. Asymptomatic mod-severe carotid stenosis P: 1. Continue ASA 81 qd, Toprol XL 25 qd, Pravachol 40 qd, Entresto 24/26 bid, Lasix 40 qd with monitor Cr and K, eventual aldosterone inhibition 2. Consideration for ICD implantation as outpatient, telemetry monitoring 3. PT and gait training 4. F/u with Dr. Her upon d/c 5. On empiric abx course for possible PNA
[2019-11-12] MEDS ORDERED: cefTRIAXone SODIUM 1 GM VIAL ONE (11:07)
[2019-11-12] MEDS ORDERED: DEXTROSE 5%-WATER - 50 ML IVPB ONE (11:07)
[2019-11-12] MEDS: CEFTRIAXONE 1 GM in DEXTROSE 5%-WATER - 50 ML IVPB SCH (11:11)
[2019-11-12] MEDS: traMADol HCL 50 MG TABLET PO PRN (11:11)
[2019-11-12 11:18] LABS: BLOOD UREA NITROGEN 39.9 mg/dL (7-18); CALCIUM 8.7 mg/dL (8.5-10.1); CREATININE 1.6 mg/dL (0.55-1.3); POTASSIUM 5.6 mmol/L (3.5-5.1)
[2019-11-12] MEDS: LIDOCAINE 5% TOPICAL PATCH TP SCH (12:24)
[2019-11-12] MEDS ORDERED: SODIUM POLYSTYRENE SULFONATE 15 GM/60 ML BOTTLE PO ONE (13:48)
--- NOTE | 2019-11-12 13:57 | PN ---
Progress Note (short form) - Note Progress Note: Pt seen/ examined chart is reviewed awake/no distress Back pain + denies cp. breathing stable Vital Signs Temp 98.1 F 11/12/19 10:00 Pulse 85 11/12/19 10:00 Resp 20 11/12/19 10:00 BP 137/67 11/12/19 10:00 Pulse Ox 96 11/12/19 09:00 Intake & Output 11/11/19 11/12/19 11/12/19 23:59 11:59 23:59 Intake Total 130 200 Balance 130 200 Weight 172 lb Intake: IV 10 saline lock 10 Oral 120 200 Other: Voiding Method Diaper Diaper # Unmeasured Voids Straight Cath 1 2 Bowel Movement No Height 5 ft 4 in Body Mass Index (BMI) 29.5 Weight Measurement Method Stated by Patient Active Medications Aspirin (Asa -) 81 mg PO DAILY [facility] Last Admin: 11/12/19 09:47 Dose: 81 mg Atorvastatin Calcium (Lipitor -) 10 mg PO [facility] Last Admin: 11/11/19 21:06 Dose: 10 mg Donepezil HCl (Aricept -) 5 mg PO [facility] Last Admin: 11/11/19 21:06 Dose: 5 mg Furosemide (Lasix -) 40 mg PO DAILY [facility] Last Admin: 11/12/19 09:47 Dose: 40 mg Heparin Sodium (Porcine) (Heparin -) 5,000 unit SQ BID [facility] Last Admin: 11/12/19 09:47 Dose: 5,000 unit Ceftriaxone Sodium 1 gm/ (Dextrose) 50 mls @ 100 mls/hr IVPB DAILY [facility] Last Admin: 11/12/19 11:11 Dose: 100 mls/hr Lidocaine (Lidoderm Patch -) 1 patch TP DAILY [facility] Last Admin: 11/12/19 12:24 Dose: 1 patch Metoprolol Succinate (Toprol Xl -) 25 mg PO [facility] Last Admin: 11/11/19 21:06 Dose: 25 mg Mirtazapine (Remeron -) 7.5 mg PO [facility] Last Admin: 11/11/19 21:06 Dose: 7.5 mg Miscellaneous (Lidoderm Patch Removal) 1 each MC DAILY@2200 [facility] Multivitamins/Minerals/Vitamin C (Tab-A-Vit -) 1 tab PO DAILY [facility] Last Admin: 11/12/19 09:47 Dose: 1 tab Sacubitril/Valsartan (Entresto 24 Mg-26 Mg Tablet) 1 tab PO BID [facility] Last Admin: 11/12/19 09:47 Dose: 1 tab Tramadol HCl (Ultram -) 50 mg PO Q6H PRN PRN Reason: PAIN LEVEL 7 - 10 Last Admin: 11/12/19 11:11 Dose: 50 mg CBC, BMP 11/11/19 05:20 11/12/19 10:33 u/s carotid - Pending Echo- Severe Global Hypokinesia f/u cxr - Pending Report Physical Exam S1, S2, regular Decreased breath sounds Soft, obese, non tender Trace edema A/P near syncope -Echo noted --Check carotid Doppler- Pending report --Check orthostasis --Cardiology evaluation noted --Telemetry - Abx for Pneumonia Hperkalemia --Kayexalate Continue present care PT oob - chair Ct T-L Spine noted Pt will benefit from ST - Pt adamantly refuses. D/ W RN and Tax Examining Technician also Will follow D/C tel- when cardiology clears Problem List - Problems (1) Back pain due to injury Code(s): S39.92XA - UNSPECIFIED INJURY OF LOWER BACK, INITIAL ENCOUNTER (2) CKD (chronic kidney disease) Code(s): N18.9 - CHRONIC KIDNEY DISEASE, UNSPECIFIED Qualifiers: Chronic kidney disease stage: stage 3 (moderate) Qualified Code(s): N18.3 - Chronic kidney disease, stage 3 (moderate) (3) Hyperkalemia Code(s): E87.5 - HYPERKALEMIA (4) Ischemic cardiomyopathy Code(s): I25.5 - ISCHEMIC CARDIOMYOPATHY (5) Pneumonia Code(s): J18.9 - PNEUMONIA, UNSPECIFIED ORGANISM (6) Syncope Code(s): R55 - SYNCOPE AND COLLAPSE Qualifiers: Syncope type: unspecified Qualified Code(s): R55 - Syncope and collapse (7) Systolic dysfunction, left ventricle Code(s): I51.9 - HEART DISEASE, UNSPECIFIED
[2019-11-12] MEDS ORDERED: PT OWN MED DRAWER 7, Y5N ONE (20:55)
[2019-11-12] MEDS: metoPROLOL SUCCINATE 25 MG TAB.SR.24H (FP) PO SCH (21:00)
[2019-11-12] MEDS: MIRTAZAPINE 15 MG TABLET (FP) PO SCH (21:00)
[2019-11-12] MEDS: DONEPEZIL HCL 5 MG TABLET (FP) PO SCH (21:00)
[2019-11-12] MEDS: LIDOCAINE PATCH REMOVAL MC SCH (21:00)
[2019-11-12] MEDS: ATORVASTATIN CA 10 MG TABLET (FP) PO SCH (21:00)
[2019-11-13] MEDS ORDERED: DEXTROSE 5%-WATER - 50 ML IVPB ONE (07:58)
[2019-11-13] MEDS ORDERED: cefTRIAXone SODIUM 1 GM VIAL ONE (07:58)
[2019-11-13] MEDS: FUROSEMIDE 40 MG TABLET (FP) PO SCH (09:40)
[2019-11-13] MEDS: HEPARIN NA (PORCINE) 5,000 UNITS/ML 1ML VIAL SQ SCH ×2 (09:40→22:57)
[2019-11-13] MEDS: ASPIRIN 81 MG CHEWABLE TABLETS PO SCH (09:40)
[2019-11-13] MEDS: LIDOCAINE 5% TOPICAL PATCH TP SCH (09:40)
[2019-11-13] MEDS: MULTIVITAMINS (DAILY MVI) TABLET (FP) PO SCH (09:40)
--- NOTE | 2019-11-13 09:40 | PN ---
Progress Note, Physician History of Present Illness: Denies recurrent near or true syncope, has not arisen out of bed yet. - Current Medication List Current Medications: Active Medications Aspirin (Asa -) 81 mg PO DAILY [facility] Last Admin: 11/12/19 09:47 Dose: 81 mg Atorvastatin Calcium (Lipitor -) 10 mg PO HS [facility] Last Admin: 11/12/19 21:00 Dose: 10 mg Donepezil HCl (Aricept -) 5 mg PO [facility] Last Admin: 11/12/19 21:00 Dose: 5 mg Furosemide (Lasix -) 40 mg PO DAILY [facility] Last Admin: 11/12/19 09:47 Dose: 40 mg Heparin Sodium (Porcine) (Heparin -) 5,000 unit SQ BID [facility] Last Admin: 11/12/19 21:00 Dose: 5,000 unit Ceftriaxone Sodium 1 gm/ (Dextrose) 50 mls @ 100 mls/hr IVPB DAILY [facility] Last Admin: 11/12/19 11:11 Dose: 100 mls/hr Lidocaine (Lidoderm Patch -) 1 patch TP DAILY [facility] Last Admin: 11/12/19 12:24 Dose: 1 patch Metoprolol Succinate (Toprol Xl -) 25 mg PO [facility] Last Admin: 11/12/19 21:00 Dose: 25 mg Mirtazapine (Remeron -) 7.5 mg PO [facility] Last Admin: 11/12/19 21:00 Dose: 7.5 mg Miscellaneous (Lidoderm Patch Removal) 1 each MC DAILY@2200 [facility] Last Admin: 11/12/19 21:00 Dose: 1 each Multivitamins/Minerals/Vitamin C (Tab-A-Vit -) 1 tab PO DAILY [facility] Last Admin: 11/12/19 09:47 Dose: 1 tab Sacubitril/Valsartan (Entresto 24 Mg-26 Mg Tablet) 1 tab PO BID [facility] Last Admin: 11/12/19 21:00 Dose: 1 tab Tramadol HCl (Ultram -) 50 mg PO Q6H PRN PRN Reason: PAIN LEVEL 7 - 10 Last Admin: 11/12/19 11:11 Dose: 50 mg - Objective Vital Signs: Vital Signs Temperature 98.3 F 11/13/19 05:54 Pulse Rate 70 11/13/19 05:54 Respiratory Rate 20 11/13/19 05:54 Blood Pressure 122/56 L 11/13/19 05:54 O2 Sat by Pulse Oximetry (%) 97 11/12/19 20:14 Constitutional: Yes: No Distress, Calm Neck: Yes: Supple Cardiovascular: Yes: Regular Rate and Rhythm Respiratory: Yes: Regular, CTA Bilaterally Gastrointestinal: Yes: Normal Bowel Sounds, Soft Edema: No Labs: CBC, BMP 11/11/19 05:20 11/12/19 10:33 - ....Imaging EKG: Report Reviewed (Tele: NSR) Problem List - Problems (1) CKD (chronic kidney disease) Code(s): N18.9 - CHRONIC KIDNEY DISEASE, UNSPECIFIED Qualifiers: Chronic kidney disease stage: stage 3 (moderate) Qualified Code(s): N18.3 - Chronic kidney disease, stage 3 (moderate) (2) Ischemic cardiomyopathy Code(s): I25.5 - ISCHEMIC CARDIOMYOPATHY (3) Systolic dysfunction, left ventricle Code(s): I51.9 - HEART DISEASE, UNSPECIFIED (4) Back pain due to injury Code(s): S39.92XA - UNSPECIFIED INJURY OF LOWER BACK, INITIAL ENCOUNTER (5) CAD (coronary artery disease) of artery bypass graft Code(s): I25.810 - ATHEROSCLEROSIS OF CABG W/O ANGINA PECTORIS Qualifiers: [place] vs. transplanted heart: tribe heart Associated angina: without angina Qualified Code(s): I25.810 - Atherosclerosis of coronary artery bypass graft(s) without angina pectoris (6) Fall Code(s): W19.XXXA - UNSPECIFIED FALL, INITIAL ENCOUNTER Qualifiers: Encounter type: initial encounter Qualified Code(s): W19.XXXA - Unspecified fall, initial encounter (7) HLD (hyperlipidemia) Code(s): E78.5 - HYPERLIPIDEMIA, UNSPECIFIED Qualifiers: Hyperlipidemia type: pure hypercholesterolemia Qualified Code(s): E78.00 - Pure hypercholesterolemia, unspecified; E78.0 - Pure hypercholesterolemia (8) HTN (hypertension) Code(s): I10 - ESSENTIAL (PRIMARY) HYPERTENSION Qualifiers: Hypertension type: renovascular hypertension Qualified Code(s): I15.0 - Renovascular hypertension (9) Type 2 diabetes mellitus Code(s): E11.9 - TYPE 2 DIABETES MELLITUS WITHOUT COMPLICATIONS Qualifiers: Diabetes mellitus marine oil terminal superintendent insulin use: without intermediate use (10) Hyperkalemia Code(s): E87.5 - HYPERKALEMIA Assessment/Plan 11/11/2019 Severe decreased LVEF 25-30%, normal RV fxn, mild MR, TR RVSP 30-40 mmHg, mild AR, , tr [place] 04/03/2018 Moderate-severe decreased LVEF 30-35%, impaired LV relaxation, mod LAE, normal RV size and fxn, mild FERNANDO 1.0 cm^2, mild-mod MR, RVSP 45 mm Hg 01/17/2017 Lexiscan Myoview: moderate size distal anterior, anterolateral scar 1. Near syncope post-fall 2. CKD with hyperkalemia 3. CAD s/p [place], CABG 4. LV systolic dysfunction, severe ischemic cardiomyopathy 5. Type 2 DM 6. Hyperlipidemia 7. Hypertensive heart disease 8. Asymptomatic mod-severe carotid stenosis P: 1. Continue ASA 81 qd, Toprol XL 25 qd, Pravachol 40 qd, Entresto 24/26 bid, Lasix 40 qd with monitor Cr and K, eventual aldosterone inhibition once renal fxn stabilizes and hyperkalemia resolves 2. Consideration for ICD implantation as outpatient, telemetry monitoring 3. PT and gait training as tolerated 4. F/u with Dr. Her upon d/c 5. On empiric abx course for possible PNA
[2019-11-13] MEDS: CEFTRIAXONE 1 GM in DEXTROSE 5%-WATER - 50 ML IVPB SCH (09:41)
[2019-11-13] MEDS ORDERED: PT OWN MED DRAWER 7, Y5N ONE ×2 (09:43→22:46)
[2019-11-13] MEDS: traMADol HCL 50 MG TABLET PO PRN ×2 (09:43→18:22)
[2019-11-13] MEDS: SACUBITRIL/VALSARTAN 24 MG-26 MG TABLET PO SCH ×2 (09:44→22:58)
[2019-11-13 11:25] LABS: HEMATOCRIT 34.6 % (32.4-45.2); HEMOGLOBIN 11.4 GM/dL (10.7-15.3); MCH 30.8 pg (25.7-33.7); MCHC 32.9 g/dl (32.0-36.0); MEAN CELL VOLUME 93.5 fl (80-96); MEAN PLT VOLUME 10.9 fl (7.5-11.1); PLATELET COUNT 127 K/MM3 (134-434); RDW 13.4 % (11.6-15.6); WHITE BLOOD COUNT 5.9 K/mm3 (4.0-10.0)
--- NOTE | 2019-11-13 11:38 | PN ---
Progress Note (short form) - Note Progress Note: pt seen/ examined lying in bed back pain issues no distress Vital Signs Temp 98.6 F 11/13/19 10:00 Pulse 68 11/13/19 10:00 Resp 20 11/13/19 10:00 BP 127/52 L 11/13/19 10:00 Pulse Ox 97 11/13/19 10:00 Intake & Output 11/12/19 11/12/19 11/13/19 11:59 23:59 11:59 Intake Total 200 320 10 Balance 200 320 10 Intake: IV 20 10 saline lock 20 10 IVPB 50 Oral 200 250 Other: Voiding Method Diaper Diaper Diaper # Unmeasured Voids Straight Cath 2 1 Bowel Movement No Active Medications Aspirin (Asa -) 81 mg PO DAILY [facility] Last Admin: 11/13/19 09:40 Dose: 81 mg Atorvastatin Calcium (Lipitor -) 10 mg PO [facility] Last Admin: 11/12/19 21:00 Dose: 10 mg Donepezil HCl (Aricept -) 5 mg PO [facility] Last Admin: 11/12/19 21:00 Dose: 5 mg Furosemide (Lasix -) 40 mg PO DAILY [facility] Last Admin: 11/13/19 09:40 Dose: 40 mg Heparin Sodium (Porcine) (Heparin -) 5,000 unit SQ BID [facility] Last Admin: 11/13/19 09:40 Dose: 5,000 unit Ceftriaxone Sodium 1 gm/ (Dextrose) 50 mls @ 100 mls/hr IVPB DAILY [facility] Last Admin: 11/13/19 09:41 Dose: 100 mls/hr Lidocaine (Lidoderm Patch -) 1 patch TP DAILY [facility] Last Admin: 11/13/19 09:40 Dose: 1 patch Metoprolol Succinate (Toprol Xl -) 25 mg PO [facility] Last Admin: 11/12/19 21:00 Dose: 25 mg Mirtazapine (Remeron -) 7.5 mg PO [facility] Last Admin: 11/12/19 21:00 Dose: 7.5 mg Miscellaneous (Lidoderm Patch Removal) 1 each MC DAILY@2200 [facility] Last Admin: 11/12/19 21:00 Dose: 1 each Multivitamins/Minerals/Vitamin C (Tab-A-Vit -) 1 tab PO DAILY [facility] Last Admin: 11/13/19 09:40 Dose: 1 tab Sacubitril/Valsartan (Entresto 24 Mg-26 Mg Tablet) 1 tab PO BID [facility] Last Admin: 11/13/19 09:44 Dose: 1 tab Tramadol HCl (Ultram -) 50 mg PO Q6H PRN PRN Reason: PAIN LEVEL 7 - 10 Last Admin: 11/13/19 09:43 Dose: 50 mg CBC, BMP 11/13/19 10:22 CMP-Noted cxr-- -ve 12/12/19 u/s carotid - Stenosis 69 percent -to- Complete '' Physical Exam S1, S2, regular Decreased breath sounds Soft, obese, non tender Trace edema A/P near syncope -Echo noted --Check carotid Doppler- Noted --Check orthostasis --Cardiology evaluation noted --Telemetry - Abx -- d/c -- cxr -ve Continue present care PT oob - chair Ct T-L Spine noted Pt will benefit from ST - Pt adamantly refuses. Will consult Vascular Surgeon also Will follow Problem List - Problems (1) Back pain due to injury Code(s): S39.92XA - UNSPECIFIED INJURY OF LOWER BACK, INITIAL ENCOUNTER (2) CKD (chronic kidney disease) Code(s): N18.9 - CHRONIC KIDNEY DISEASE, UNSPECIFIED Qualifiers: Chronic kidney disease stage: stage 3 (moderate) Qualified Code(s): N18.3 - Chronic kidney disease, stage 3 (moderate) (3) Hyperkalemia Code(s): E87.5 - HYPERKALEMIA (4) Ischemic cardiomyopathy Code(s): I25.5 - ISCHEMIC CARDIOMYOPATHY (5) Pneumonia Code(s): J18.9 - PNEUMONIA, UNSPECIFIED ORGANISM (6) Syncope Code(s): R55 - SYNCOPE AND COLLAPSE Qualifiers: Syncope type: unspecified Qualified Code(s): R55 - Syncope and collapse (7) Systolic dysfunction, left ventricle Code(s): I51.9 - HEART DISEASE, UNSPECIFIED
[2019-11-13 12:38] LABS: BILIRUBIN,TOTAL 0.4 mg/dL (0.2-1); BLOOD UREA NITROGEN 41.8 mg/dL (7-18); CALCIUM 8.8 mg/dL (8.5-10.1); CREATININE 1.6 mg/dL (0.55-1.3); POTASSIUM 5.2 mmol/L (3.5-5.1); TOT PROT 6.1 g/dl (6.4-8.2)
[2019-11-13] MEDS: DONEPEZIL HCL 5 MG TABLET (FP) PO SCH (22:57)
[2019-11-13] MEDS: LIDOCAINE PATCH REMOVAL MC SCH (22:57)
[2019-11-13] MEDS: metoPROLOL SUCCINATE 25 MG TAB.SR.24H (FP) PO SCH (22:57)
[2019-11-13] MEDS: MIRTAZAPINE 15 MG TABLET (FP) PO SCH (22:57)
[2019-11-13] MEDS: ATORVASTATIN CA 10 MG TABLET (FP) PO SCH (22:57)
--- NOTE | 2019-11-14 10:13 | PN ---
Progress Note, Physician History of Present Illness: Denies recurrent near or true syncope, ambulated with baseline LIGHT, denies chest pain. - Current Medication List Current Medications: Active Medications Aspirin (Asa -) 81 mg PO DAILY [facility] Last Admin: 11/13/19 09:40 Dose: 81 mg Atorvastatin Calcium (Lipitor -) 10 mg PO [facility] Last Admin: 11/13/19 22:57 Dose: 10 mg Donepezil HCl (Aricept -) 5 mg PO [facility] Last Admin: 11/13/19 22:57 Dose: 5 mg Furosemide (Lasix -) 40 mg PO DAILY [facility] Last Admin: 11/13/19 09:40 Dose: 40 mg Heparin Sodium (Porcine) (Heparin -) 5,000 unit SQ BID [facility] Last Admin: 11/13/19 22:57 Dose: 5,000 unit Lidocaine (Lidoderm Patch -) 1 patch TP DAILY [facility] Last Admin: 11/13/19 09:40 Dose: 1 patch Metoprolol Succinate (Toprol Xl -) 25 mg PO [facility] Last Admin: 11/13/19 22:57 Dose: 25 mg Mirtazapine (Remeron -) 7.5 mg PO [facility] Last Admin: 11/13/19 22:57 Dose: 7.5 mg Miscellaneous (Lidoderm Patch Removal) 1 each MC DAILY@2200 [facility] Last Admin: 11/13/19 22:57 Dose: 1 each Multivitamins/Minerals/Vitamin C (Tab-A-Vit -) 1 tab PO DAILY [facility] Last Admin: 11/13/19 09:40 Dose: 1 tab Sacubitril/Valsartan (Entresto 24 Mg-26 Mg Tablet) 1 tab PO BID [facility] Last Admin: 11/13/19 22:58 Dose: 1 tab Tramadol HCl (Ultram -) 50 mg PO Q6H PRN PRN Reason: PAIN LEVEL 7 - 10 Last Admin: 11/13/19 18:22 Dose: 50 mg - Objective Vital Signs: Vital Signs Temperature 97.7 F 11/14/19 01:54 Pulse Rate 66 11/14/19 01:54 Respiratory Rate 18 11/14/19 09:00 Blood Pressure 111/49 L 11/14/19 01:54 O2 Sat by Pulse Oximetry (%) 100 11/14/19 09:00 Constitutional: Yes: No Distress, Calm Neck: Yes: Supple Cardiovascular: Yes: Regular Rate and Rhythm Respiratory: Yes: Regular, CTA Bilaterally Gastrointestinal: Yes: Normal Bowel Sounds, Soft Edema: No Labs: CBC, BMP 11/13/19 10:22 11/13/19 10:22 - ....Imaging Chest X-ray: Report Reviewed (NAD) EKG: Report Reviewed (Tele: NSR) Problem List - Problems (1) CKD (chronic kidney disease) Code(s): N18.9 - CHRONIC KIDNEY DISEASE, UNSPECIFIED Qualifiers: Chronic kidney disease stage: stage 3 (moderate) Qualified Code(s): N18.3 - Chronic kidney disease, stage 3 (moderate) (2) Ischemic cardiomyopathy Code(s): I25.5 - ISCHEMIC CARDIOMYOPATHY (3) Systolic dysfunction, left ventricle Code(s): I51.9 - HEART DISEASE, UNSPECIFIED (4) Back pain due to injury Code(s): S39.92XA - UNSPECIFIED INJURY OF LOWER BACK, INITIAL ENCOUNTER (5) CAD (coronary artery disease) of artery bypass graft Code(s): I25.810 - ATHEROSCLEROSIS OF CABG W/O ANGINA PECTORIS Qualifiers: [place] vs. transplanted heart: [place] heart Associated angina: without angina Qualified Code(s): I25.810 - Atherosclerosis of coronary artery bypass graft(s) without angina pectoris (6) Fall Code(s): W19.XXXA - UNSPECIFIED FALL, INITIAL ENCOUNTER Qualifiers: Encounter type: initial encounter Qualified Code(s): W19.XXXA - Unspecified fall, initial encounter (7) HLD (hyperlipidemia) Code(s): E78.5 - HYPERLIPIDEMIA, UNSPECIFIED Qualifiers: Hyperlipidemia type: pure hypercholesterolemia Qualified Code(s): E78.00 - Pure hypercholesterolemia, unspecified; E78.0 - Pure hypercholesterolemia (8) HTN (hypertension) Code(s): I10 - ESSENTIAL (PRIMARY) HYPERTENSION Qualifiers: Hypertension type: renovascular hypertension Qualified Code(s): I15.0 - Renovascular hypertension (9) Type 2 diabetes mellitus Code(s): E11.9 - TYPE 2 DIABETES MELLITUS WITHOUT COMPLICATIONS Qualifiers: Diabetes mellitus long-term insulin use: without long-term use (10) Hyperkalemia Code(s): E87.5 - HYPERKALEMIA Assessment/Plan 11/11/2019 Severe decreased LVEF 25-30%, normal RV fxn, mild MR, TR RVSP 30-40 mmHg, mild [place], , tr [place] 04/03/2018 Moderate-severe decreased LVEF 30-35%, impaired LV relaxation, mod LAE, normal RV size and fxn, mild FERNANDO 1.0 cm^2, mild-mod MR, RVSP 45 mm Hg 01/17/2017 Lexiscan Myoview: moderate size distal anterior, anterolateral scar 1. Near syncope post-fall 2. CKD with hyperkalemia 3. CAD s/p [place], CABG 4. LV systolic dysfunction, severe ischemic cardiomyopathy 5. Type 2 DM 6. Hyperlipidemia 7. Hypertensive heart disease 8. Asymptomatic mod-severe carotid stenosis P: 1. Continue ASA 81 qd, Toprol XL 25 qd, Pravachol 40 qd, Entresto 24/26 bid, Lasix 40 qd with monitor Cr and K, eventual aldosterone inhibition once renal fxn stabilizes and hyperkalemia resolves 2. Consideration for ICD implantation as outpatient, telemetry monitoring 3. PT and gait training as tolerated 4. F/u with Dr. Her upon d/c 5. Observe off empiric abx course
[2019-11-14] MEDS: ASPIRIN 81 MG CHEWABLE TABLETS PO SCH (10:49)
[2019-11-14] MEDS: SACUBITRIL/VALSARTAN 24 MG-26 MG TABLET PO SCH ×2 (10:50→23:47)
[2019-11-14] MEDS: MULTIVITAMINS (DAILY MVI) TABLET (FP) PO SCH (10:50)
[2019-11-14] MEDS: FUROSEMIDE 40 MG TABLET (FP) PO SCH (10:50)
[2019-11-14] MEDS: LIDOCAINE 5% TOPICAL PATCH TP SCH (10:50)
[2019-11-14] MEDS: HEPARIN NA (PORCINE) 5,000 UNITS/ML 1ML VIAL SQ SCH ×2 (10:50→23:00)
--- NOTE | 2019-11-14 11:47 | CONSULT ---
Consult Consult Specialty:: Vascular Surgery - History of Present Illness History of Present Illness: 84 year old woman with bilateral carotid stenosis (70% in 2012) who is followed at [facility]. She was admitted after near-syncopal event after standing up at home. She denies any lateralizing symptoms and states she became weak and dizzy and her legs gave out. She denies loss of consciousness or seizure. - History Source History Provided By: Patient, Medical Record - Past Medical History Cardio/Vascular: Yes: CAD, HTN, Hyperlipdemia ...: No Endocrine: Yes: Diabetes Mellitus - Past Surgical History Past Surgical History: Yes: CABG (quintuple), Cholecystectomy, Hysterectomy - Alcohol/Substance Use Hx Alcohol Use: No History of Substance Use: reports: None - Smoking History Smoking history: Former smoker Have you smoked in the past 12 months: No Aproximately how many cigarettes per day: 0 If you are a former smoker, when did you quit?: 1997 - Social History ADL: Family Assistance Occupation: Retired History of Recent Travel: No Home Medications - Allergies Allergies/Adverse Reactions: Allergies Allergy/AdvReac Type Severity Reaction Status Date / Time No Known Allergies Allergy Verified 11/10/19 18:21 - Home Medications Home Medications: Ambulatory Orders Ascorbate Calcium [Vitamin C] 1,000 mg PO BID 12/11/15 Aspirin [ASA -] 81 mg PO DAILY 12/11/15 Allopurinol [Zyloprim -] 300 mg PO DAILY #30 tablet 12/15/15 Ferrous Gluconate [Iron] 130 mg PO BID 11/01/16 Furosemide [Lasix] 40 mg PO DAILY 11/01/16 Pioglitazone HCl [Actos] 22.5 mg PO DAILY 11/01/16 Pravastatin Sodium [Pravachol -] 40 mg PO HS 11/01/16 Donepezil HCl [Aricept -] 5 mg PO HS tablet 11/12/18 Heparin - 5,000 unit SQ BID vial 11/12/18 Metoprolol Succinate [Toprol XL -] 25 mg PO HS tab.sr.24h 11/12/18 Mirtazapine [Remeron -] 7.5 mg PO HS tablet 11/12/18 Multivitamins [Multivit ([facility] Formulary)] 1 tab PO DAILY tab 11/12/18 Sacubitril/Valsartan [Entresto 24 mg-26 mg Tablet] 0.5 tab PO BID tablet Sacubitril/Valsartan [Entresto 24 mg-26 mg Tablet] 1 each PO BID 30 Days #30 tablet 11/12/18 Solifenacin Succinate [Vesicare -] 5 mg PO DAILY #30 tab 11/12/18 Physical Exam Vital Signs: Vital Signs Temperature 97.7 F 11/14/19 01:54 Pulse Rate 66 11/14/19 01:54 Respiratory Rate 18 11/14/19 09:00 Blood Pressure 111/49 L 11/14/19 01:54 O2 Sat by Pulse Oximetry (%) 100 11/14/19 09:00 Constitutional: Yes: No Distress Eyes: Yes: WNL HENT: Yes: WNL, Atraumatic Neck: Yes: Supple Cardiovascular: Yes: Regular Rate and Rhythm Respiratory: Yes: Regular Gastrointestinal: Yes: Soft, Tenderness Neurological: Yes: Alert, Oriented ...Motor Strength: WNL Labs: CBC, BMP 11/13/19 10:22 11/13/19 10:22 Imaging - Results Ultrasound: Other (Carotid DUplex shows extensive atherosclerotic plaque in both carotids with > 80% stnosis bilaterally by SVU criteria) Problem List - Problems (1) Carotid stenosis, bilateral Assessment/Plan: 84 year old with progressive worsening carotid stenoses, bilateral, to > 80% by Duplex criteria. Syncope can be attributed to bilateral severe stenosis with orthostatic hypotension. Evaluation for occult infarcts with MRI might be helpful. Management with carotid revascularization is recommended to reduce risk of future events or strokes. Her concomitant cardiac disease may put her at high risk for endarterectomy. Trans carotid stenting (TCAR) is a less risky alternative to place stent via a small neck incision with low cardiac morbidity and stroke risk. I would strongly recommend that she be evaluated for this option. Code(s): I65.23 - OCCLUSION AND STENOSIS OF BILATERAL CAROTID ARTERIES
--- NOTE | 2019-11-14 11:53 | PN ---
Progress Note (short form) - Note Progress Note: pt seen/ examined feels better walked with PT yesterday back pain better Vital Signs Temp 97.7 F 11/14/19 01:54 Pulse 66 11/14/19 01:54 Resp 18 11/14/19 09:00 BP 111/49 L 11/14/19 01:54 Pulse Ox 100 11/14/19 09:00 Intake & Output 11/13/19 11/13/19 11/14/19 11:59 23:59 11:59 Intake Total 10 300 Balance 10 300 Intake: IV 10 saline lock 10 Oral 300 Other: Voiding Method Diaper Diaper Diaper # Unmeasured Voids Straight Cath 1 1 Bowel Movement No No Active Medications Aspirin (Asa -) 81 mg PO DAILY [facility] Last Admin: 11/14/19 10:49 Dose: 81 mg Atorvastatin Calcium (Lipitor -) 10 mg PO [facility] Last Admin: 11/13/19 22:57 Dose: 10 mg Donepezil HCl (Aricept -) 5 mg PO [facility] Last Admin: 11/13/19 22:57 Dose: 5 mg Furosemide (Lasix -) 40 mg PO DAILY [facility] Last Admin: 11/14/19 10:50 Dose: 40 mg Heparin Sodium (Porcine) (Heparin -) 5,000 unit SQ BID [facility] Last Admin: 11/14/19 10:50 Dose: 5,000 unit Lidocaine (Lidoderm Patch -) 1 patch TP DAILY [facility] Last Admin: 11/14/19 10:50 Dose: 1 patch Metoprolol Succinate (Toprol Xl -) 25 mg PO [facility] Last Admin: 11/13/19 22:57 Dose: 25 mg Mirtazapine (Remeron -) 7.5 mg PO [facility] Last Admin: 11/13/19 22:57 Dose: 7.5 mg Miscellaneous (Lidoderm Patch Removal) 1 each MC DAILY@2200 [facility] Last Admin: 11/13/19 22:57 Dose: 1 each Multivitamins/Minerals/Vitamin C (Tab-A-Vit -) 1 tab PO DAILY [facility] Last Admin: 11/14/19 10:50 Dose: 1 tab Sacubitril/Valsartan (Entresto 24 Mg-26 Mg Tablet) 1 tab PO BID [facility] Last Admin: 11/14/19 10:50 Dose: 1 tab Tramadol HCl (Ultram -) 50 mg PO Q6H PRN PRN Reason: PAIN LEVEL 7 - 10 Last Admin: 11/13/19 18:22 Dose: 50 mg CBC, BMP 11/13/19 10:22 11/13/19 10:22 Physical Exam S1, S2, regular Decreased breath sounds Soft, obese, non tender Trace edema A/P near syncope -Echo noted --Check carotid Doppler- Noted --Check orthostasis --Cardiology evaluation noted --Telemetry - Abx -- d/c -- cxr -ve Continue present care PT oob - chair Ct T-L Spine noted Pt will benefit from ST - Pt adamantly refuses. Discussed with Dr. Cleaning --today -- will follow-- Recommendation noted Problem List - Problems (1) Back pain due to injury Code(s): S39.92XA - UNSPECIFIED INJURY OF LOWER BACK, INITIAL ENCOUNTER (2) CKD (chronic kidney disease) Code(s): N18.9 - CHRONIC KIDNEY DISEASE, UNSPECIFIED Qualifiers: Chronic kidney disease stage: stage 3 (moderate) Qualified Code(s): N18.3 - Chronic kidney disease, stage 3 (moderate) (3) Hyperkalemia Code(s): E87.5 - HYPERKALEMIA (4) Ischemic cardiomyopathy Code(s): I25.5 - ISCHEMIC CARDIOMYOPATHY (5) Pneumonia Code(s): J18.9 - PNEUMONIA, UNSPECIFIED ORGANISM (6) Syncope Code(s): R55 - SYNCOPE AND COLLAPSE Qualifiers: Syncope type: unspecified Qualified Code(s): R55 - Syncope and collapse (7) Systolic dysfunction, left ventricle Code(s): I51.9 - HEART DISEASE, UNSPECIFIED
[2019-11-14] MEDS ORDERED: PT OWN MED DRAWER 7, Y5N ONE (21:52)
[2019-11-14] MEDS ORDERED: SENNOSIDES 8.6MG TABLET (FP) PO SCH (22:00)
[2019-11-14] MEDS: DONEPEZIL HCL 5 MG TABLET (FP) PO SCH (22:59)
[2019-11-14] MEDS: MIRTAZAPINE 15 MG TABLET (FP) PO SCH (23:00)
[2019-11-14] MEDS: metoPROLOL SUCCINATE 25 MG TAB.SR.24H (FP) PO SCH (23:00)
[2019-11-14] MEDS: ATORVASTATIN CA 10 MG TABLET (FP) PO SCH (23:00)
[2019-11-14] MEDS: LIDOCAINE PATCH REMOVAL MC SCH (23:13)
[2019-11-14] MEDS: traMADol HCL 50 MG TABLET PO PRN (23:19)
[2019-11-15 07:22] VITALS: TEMP 98
[2019-11-15 07:51] LABS: BLOOD UREA NITROGEN 52.3 mg/dL (7-18); CALCIUM 8.8 mg/dL (8.5-10.1); CREATININE 1.6 mg/dL (0.55-1.3); POTASSIUM 5.8 mmol/L (3.5-5.1)
[2019-11-15] MEDS ORDERED: POLYETHYLENE GLYCOL 3350 119 GM BTL PO SCH (10:00)
--- NOTE | 2019-11-15 10:17 | PN ---
Progress Note, Physician History of Present Illness: Denies recurrent near or true syncope, ambulated with baseline LIGHT, denies chest pain. - Current Medication List Current Medications: Active Medications Aspirin (Asa -) 81 mg PO DAILY [facility] Last Admin: 11/14/19 10:49 Dose: 81 mg Atorvastatin Calcium (Lipitor -) 10 mg PO HS [facility] Last Admin: 11/14/19 23:00 Dose: 10 mg Donepezil HCl (Aricept -) 5 mg PO [facility] Last Admin: 11/14/19 22:59 Dose: 5 mg Furosemide (Lasix -) 40 mg PO DAILY [facility] Last Admin: 11/14/19 10:50 Dose: 40 mg Heparin Sodium (Porcine) (Heparin -) 5,000 unit SQ BID [facility] Last Admin: 11/14/19 23:00 Dose: 5,000 unit Lidocaine (Lidoderm Patch -) 1 patch TP DAILY [facility] Last Admin: 11/14/19 10:50 Dose: 1 patch Metoprolol Succinate (Toprol Xl -) 25 mg PO [facility] Last Admin: 11/14/19 23:00 Dose: 25 mg Mirtazapine (Remeron -) 7.5 mg PO [facility] Last Admin: 11/14/19 23:00 Dose: 7.5 mg Miscellaneous (Lidoderm Patch Removal) 1 each MC DAILY@2200 [facility] Last Admin: 11/14/19 23:13 Dose: 1 each Multivitamins/Minerals/Vitamin C (Tab-A-Vit -) 1 tab PO DAILY [facility] Last Admin: 11/14/19 10:50 Dose: 1 tab Polyethylene Glycol (Miralax (For Daily Use) -) 17 gm PO DAILY [facility] Sacubitril/Valsartan (Entresto 24 Mg-26 Mg Tablet) 1 tab PO BID [facility] Last Admin: 11/14/19 23:47 Dose: 1 tab Senna (Senna -) 2 tab PO [facility] Last Admin: 11/14/19 23:00 Dose: 2 tab Sodium Polystyrene Sulfonate (Kayexalate -) 15 gm PO ONCE ONE Stop: 11/15/19 10:17 Tramadol HCl (Ultram -) 50 mg PO Q6H PRN PRN Reason: PAIN LEVEL 7 - 10 Last Admin: 11/14/19 23:19 Dose: 50 mg - Objective Vital Signs: Vital Signs Temperature 98 F 11/15/19 06:00 Pulse Rate 68 11/15/19 06:00 Respiratory Rate 18 11/15/19 06:00 Blood Pressure 115/54 L 11/15/19 06:00 O2 Sat by Pulse Oximetry (%) 100 11/14/19 21:00 Constitutional: Yes: No Distress, Calm Neck: Yes: Supple Cardiovascular: Yes: Regular Rate and Rhythm Respiratory: Yes: Regular, CTA Bilaterally Gastrointestinal: Yes: Normal Bowel Sounds, Soft Edema: No Labs: CBC, BMP 11/13/19 10:22 11/15/19 06:10 - ....Imaging EKG: Report Reviewed (Tele: NSR) Problem List - Problems (1) CKD (chronic kidney disease) Code(s): N18.9 - CHRONIC KIDNEY DISEASE, UNSPECIFIED Qualifiers: Chronic kidney disease stage: stage 3 (moderate) Qualified Code(s): N18.3 - Chronic kidney disease, stage 3 (moderate) (2) Ischemic cardiomyopathy Code(s): I25.5 - ISCHEMIC CARDIOMYOPATHY (3) Systolic dysfunction, left ventricle Code(s): I51.9 - HEART DISEASE, UNSPECIFIED (4) Back pain due to injury Code(s): S39.92XA - UNSPECIFIED INJURY OF LOWER BACK, INITIAL ENCOUNTER (5) CAD (coronary artery disease) of artery bypass graft Code(s): I25.810 - ATHEROSCLEROSIS OF CABG W/O ANGINA PECTORIS Qualifiers: [place] vs. transplanted heart: [place] heart Associated angina: without angina Qualified Code(s): I25.810 - Atherosclerosis of coronary artery bypass graft(s) without angina pectoris (6) Fall Code(s): W19.XXXA - UNSPECIFIED FALL, INITIAL ENCOUNTER Qualifiers: Encounter type: initial encounter Qualified Code(s): W19.XXXA - Unspecified fall, initial encounter (7) HLD (hyperlipidemia) Code(s): E78.5 - HYPERLIPIDEMIA, UNSPECIFIED Qualifiers: Hyperlipidemia type: pure hypercholesterolemia Qualified Code(s): E78.00 - Pure hypercholesterolemia, unspecified; E78.0 - Pure hypercholesterolemia (8) HTN (hypertension) Code(s): I10 - ESSENTIAL (PRIMARY) HYPERTENSION Qualifiers: Hypertension type: renovascular hypertension Qualified Code(s): I15.0 - Renovascular hypertension (9) Type 2 diabetes mellitus Code(s): E11.9 - TYPE 2 DIABETES MELLITUS WITHOUT COMPLICATIONS Qualifiers: Diabetes mellitus retirement insulin use: without retirement use (10) Hyperkalemia Code(s): E87.5 - HYPERKALEMIA Assessment/Plan 11/11/2019 Severe decreased LVEF 25-30%, normal RV fxn, mild MR, TR RVSP 30-40 mmHg, mild AR, , tr VT 04/03/2018 Moderate-severe decreased LVEF 30-35%, impaired LV relaxation, mod LAE, normal RV size and fxn, mild FERNANDO 1.0 cm^2, mild-mod MR, RVSP 45 mm Hg 01/17/2017 Lexiscan Myoview: moderate size distal anterior, anterolateral scar 1. Near syncope post-fall 2. CKD with hyperkalemia 3. CAD s/p VT, CABG 4. LV systolic dysfunction, severe ischemic cardiomyopathy 5. Type 2 DM 6. Hyperlipidemia 7. Hypertensive heart disease 8. Asymptomatic mod-severe carotid stenosis P: 1. Continue ASA 81 qd, Toprol XL 25 qd, Pravachol 40 qd, Entresto 24/26 bid, Lasix 40 qd with monitor Cr and K, eventual aldosterone inhibition once renal fxn stabilizes and hyperkalemia resolves, placed on kayexelate in meantime 2. Consideration for ICD implantation as outpatient, telemetry monitoring 3. PT and gait training as tolerated 4. F/u with Dr. Her upon d/c 5. Observe off empiric abx course
[2019-11-15] MEDS ORDERED: SODIUM POLYSTYRENE SULFONATE 15 GM/60 ML BOTTLE PO ONE (10:30)
[2019-11-15 10:39] VITALS: BP 133/52; PULSE 66
[2019-11-15] MEDS: HEPARIN NA (PORCINE) 5,000 UNITS/ML 1ML VIAL SQ SCH (10:43)
[2019-11-15] MEDS: MULTIVITAMINS (DAILY MVI) TABLET (FP) PO SCH (10:43)
[2019-11-15] MEDS: ASPIRIN 81 MG CHEWABLE TABLETS PO SCH (10:43)
[2019-11-15] MEDS: FUROSEMIDE 40 MG TABLET (FP) PO SCH (10:43)
[2019-11-15] MEDS: LIDOCAINE 5% TOPICAL PATCH TP SCH (10:44)
[2019-11-15] MEDS: SACUBITRIL/VALSARTAN 24 MG-26 MG TABLET PO SCH (10:44)
--- NOTE | 2019-11-15 11:19 | DS ---
Physical Examination Vital Signs: Vital Signs Temperature 98 F 11/15/19 10:38 Pulse Rate 66 11/15/19 10:38 Respiratory Rate 18 11/15/19 10:38 Blood Pressure 133/52 L 11/15/19 10:38 O2 Sat by Pulse Oximetry (%) 100 11/14/19 21:00 Findings/Remarks: Pt seen/ examined feels much better wants to go home back pain better Requesting to give some pain meds Constitutional: Yes: No Distress Eyes: Yes: WNL, Conjunctiva Clear HENT: Yes: WNL Neck: Yes: Supple, Trachea Midline Cardiovascular: Yes: Regular Rate and Rhythm Respiratory: Yes: CTA Bilaterally Gastrointestinal: Yes: Soft Musculoskeletal: Yes: Other (rom- Limited - Lower back area.) Edema: No Neurological: Yes: Alert ...Motor Strength: WNL Psychiatric: Yes: Alert Labs: CBC, BMP 11/13/19 10:22 11/15/19 06:10 Discharge Summary Problems reviewed: Yes Reason For Visit: SYNCOPE, BACK PAIN DUE TO INJURY Current Active Problems Back pain due to injury (Acute) CKD (chronic kidney disease) (Acute) Carotid stenosis, bilateral (Acute) Hyperkalemia (Acute) Ischemic cardiomyopathy (Acute) Pneumonia (Acute) Syncope (Acute) Systolic dysfunction, left ventricle (Acute) Hospital Course: This is a 84 y/o woman with a PMH of CAD s/p NM s/p 5v CABG, HLD, HTN, DM, CKD last admission 11/11/18 for Weakness and Fall. Who presents to the ED following an unwitnessed fall . Admitted to tele Work up showed -osteoarthritis--Spinal canal stenosis, Also worsening Carotid artery stenosis. Cardiology followed Vascular also consulted - Who recommended [facility] Pt family says they will follow with their Vascular Surgeon . Overall stable will d/c home meds reconcilled will send on kayexalte also advised to follow with pmd also in one week D/W foster care case manager and RN also. Condition: Stable - Instructions Referrals: Bryce Ash MD [Primary Care Provider] - Disposition: [facility]/HOME HEALTH CARE - Home Medications Comprehensive Discharge Medication List: Ambulatory Orders Ascorbate Calcium [Vitamin C] 1,000 mg PO BID 12/11/15 Aspirin [ASA -] 81 mg PO DAILY 12/11/15 Allopurinol [Zyloprim -] 300 mg PO DAILY #30 tablet 12/15/15 Ferrous Gluconate [Iron] 130 mg PO BID 11/01/16 Furosemide [Lasix] 40 mg PO DAILY 11/01/16 Pioglitazone HCl [Actos] 22.5 mg PO DAILY 11/01/16 Pravastatin Sodium [Pravachol -] 40 mg PO HS 11/01/16 Donepezil HCl [Aricept -] 5 mg PO HS tablet 11/12/18 Metoprolol Succinate [Toprol XL -] 25 mg PO HS tab.sr.24h 11/12/18 Mirtazapine [Remeron -] 7.5 mg PO HS tablet 11/12/18 Multivitamins [Multivit ([facility] Formulary)] 1 tab PO DAILY tab 11/12/18 Sacubitril/Valsartan [Entresto 24 mg-26 mg Tablet] 0.5 tab PO BID tablet Solifenacin Succinate [Vesicare -] 5 mg PO DAILY #30 tab 11/12/18 Lidocaine 5% Patch [Lidoderm -] 1 patch TP DAILY #30 patch 11/15/19 Polyethylene Glycol 3350 [Miralax 119 gm Btl -] 17 gm PO DAILY bottle 11/15/19 Sennosides [Senna -] 2 tab PO HS tablet 11/15/19 traMADol HCL [Ultram -] 50 mg PO BID #15 tablet MDD 2 11/15/19
== END 2019-11-15 14:38 | disposition home health service (06) | DRG 68 ==
LOC: JER 17:57 → JERBED 21:55 → J4W 11-11 12:31
PROVIDERS: ADMIT Internal Medicine; ATTEND Internal Medicine
DX: I65.23 Occlusion and stenosis of bilateral carotid arteries (principal); N17.9 Acute kidney failure, unspecified; I65.22 Occlusion and stenosis of left carotid artery; R55 Syncope and collapse; I25.10 Atherosclerotic heart disease of native coronary artery without angina pectoris; I25.2 Old myocardial infarction; E11.9 Type 2 diabetes mellitus without complications; E78.5 Hyperlipidemia, unspecified; I10 Essential (primary) hypertension; I13.10 Hypertensive heart and chronic kidney disease without heart failure, with stage 1 through stage 4 chronic kidney disease, or unspecified chronic kidney disease; E11.22 Type 2 diabetes mellitus with diabetic chronic kidney disease; N18.3 Chronic kidney disease, stage 3 (moderate); E66.9 Obesity, unspecified; E87.5 Hyperkalemia; M48.061 Spinal stenosis, lumbar region without neurogenic claudication; I25.5 Ischemic cardiomyopathy; W18.39XA Other fall on same level, initial encounter; Y92.098 Other place in other non-institutional residence as the place of occurrence of the external cause; Z95.1 Presence of aortocoronary bypass graft; Z68.29 Body mass index [BMI] 29.0-29.9, adult; Z87.891 Personal history of nicotine dependence
CPT/HCPCS: 36415; 70450-TC; 71045-TC-FY; 72125-TC; 72128-TC; 72131-TC; 80048; 80053; 80061; 81003; 82550; 83721; 83735; 84100; 84443; 84484; 85025; 85027; 87040; 93005; 93010; 93306-TC; 93880-TC; 97116-GP; 97161-GP; 99285-25; J0131; J1644